=== PATIENT | male | born 1950 | race Caucasian/White ===

== ENCOUNTER 2016-11-14 15:16 | Inpatient (IN) | payer MEDICARE, MEDICAID ==
[~2016-11-14] VITALS: Ht 177.8 cm; Wt 80.3 kg
[~2016-11-14 15:16] MED LIST: AMLO2.5T PO; FLUO-191 PO; LEVE500T53 PO; MV-M1TAB2 PO; OMEP20 PO; QUET300XR PO; [UNRECOGNIZED DRUG - REMARK]
[2016-11-14 16:35] LABS: BASOPHILS # (AUTO) 0.02 K/uL (0.00-0.20); BASOPHILS % (AUTO) 0.2 % (0.0-2.0); EOSINOPHILS # (AUTO) 0.02 K/uL (0.00-0.70); EOSINOPHILS % (AUTO) 0.33 % (1.0-6.0); HEMATOCRIT 38.4 % (41-53); HEMOGLOBIN 12.9 g/dL (13.5-17.5); LYMPHOCYTES % (AUTO) 28.7 % (22.0-44.0); MEAN CORPUSCULAR HGB CONC 33.5 G/dL (31.0-37.0); MEAN CORPUSCULAR VOLUME 87 fL (80-100); MONOCYTES # (AUTO) 0.4 K/uL (0.1-1.0); MONOCYTES % (AUTO) 6.1 % (2.0-9.0); NEUTROPHILS # (AUTO) 4.5 K/uL (1.8-7.7); NEUTROPHILS % (AUTO) 64.6 % (40.0-70.0); PLATELET COUNT (AUTO) 174 K/uL (150-450); RED BLOOD CELL COUNT(AUTO) 4.43 MIL/uL (4.50-5.90); RED CELL DISTRIBUTION WIDTH 14.1 % (11.5-14.5); WHITE BLOOD COUNT (AUTO) 6.9 K/uL (4.5-11.0)
[2016-11-14 16:36] LABS: ANION GAP 14 mmol/L (8-16); CALCIUM, TOTAL 8.5 mg/dL (8.8-10.5); CARBON DIOXIDE 24 mmol/L (22-29); CHLORIDE 103 mmol/L (98-107); CREATININE 0.97 mg/dL (0.60-1.30); GLOMERULAR FILTR. RATE CALC > 60 mL/min (>60); POTASSIUM 3.6 mmol/L (3.5-5.1); SODIUM SERUM 141 mmol/L (136-145); UREA NITROGEN, BLOOD 13 mg/dL (7-18)
[2016-11-14 16:42] LABS: ALANINE AMINOTRANSFERASE 26 U/L (12-78); ALBUMIN 3.6 g/dL (3.4-5.0); ASPARTATE AMINOTRANSFERASE 23 U/L (15-37); BILIRUBIN,TOTAL 0.2 mg/dL (0.1-1.0); TOTAL PROTEIN, SERUM 7.2 g/dL (6.4-8.2)
[2016-11-14] MEDS ORDERED: SODIUM CHLORIDE 0.9% 1,000 ML IV ONE (17:15)
[2016-11-14] MEDS ORDERED: HALOPERIDOL 5 MG TABLET PO PRN (17:15)
[2016-11-14] MEDS ORDERED: HALOPERIDOL LACTATE 5 MG/ML VIAL IM ONE (18:45)
[2016-11-14] MEDS ORDERED: LORazepam 2 MG/ML VIAL IM ONE (18:45)
[2016-11-14] MEDS: ZOLPIDEM TARTRATE 10 MG TABLET PO PRN (23:49)
[2016-11-15] MEDS ORDERED: IBUPROFEN 600 MG TABLET PO PRN (10:00)
[2016-11-15] MEDS ORDERED: ACETAMINOPHEN 325 MG TABLET PO PRN (10:00)
[2016-11-15] MEDS ORDERED: PETROLATUM,WHITE 71 GM JELLY TP PRN (10:00)
[2016-11-15] MEDS ORDERED: BENZOCAINE/MENTHOL LOZENGE MM PRN (10:00)
[2016-11-15] MEDS ORDERED: ALBUTEROL SULFATE HFA 90 MCG/PUFF 8 GM INHALER IH PRN (10:00)
[2016-11-15] MEDS ORDERED: LOPERAMIDE HCL 2 MG CAPSULE PO PRN (10:00)
[2016-11-15] MEDS ORDERED: MAG HYDROX/AL HYDROX/SIMETH ES 30 ML SUSPENSION UDCUP PO PRN (10:00)
[2016-11-15] MEDS ORDERED: CloNIDine HCL 0.1 MG TABLET PO PRN (10:00)
[2016-11-15] MEDS ORDERED: ONDANSETRON HCL 4 MG TABLET PO PRN (10:00)
[2016-11-15] MEDS ORDERED: BACITRACIN 28.4 GM OINTMENT TP PRN (10:00)
[2016-11-15] MEDS ORDERED: MAGNESIUM HYDROXIDE SUSPENSION 30 ML UDCUP PO PRN (10:00)
[2016-11-15] MEDS: LORazepam 2 MG TABLET PO PRN (10:55)
[2016-11-15 16:16] VITALS: BP 137/84
[2016-11-15] MEDS: LevETIRAcetam 500 MG TABLET PO SCH (16:46)
[2016-11-16 06:19] VITALS: BP 135/80
[2016-11-16 08:24] VITALS: BP 115/70
[2016-11-16] MEDS: LevETIRAcetam 500 MG TABLET PO SCH ×2 (09:25→17:11)
[2016-11-16] MEDS: OMEPRAZOLE 20 MG CAPSULE PO SCH (09:25)
[2016-11-16] MEDS: AmLODIPine BESYLATE 2.5 MG TABLET PO SCH (09:26)
[2016-11-16] MEDS: DOCUSATE SODIUM 100 MG CAPSULE PO SCH (09:26)
[2016-11-16] MEDS: NICOTINE 21 MG/24 HOUR PATCH TD SCH (09:26)
[2016-11-16 16:00] VITALS: BP 112/74
[2016-11-16] MEDS: LORazepam 2 MG TABLET PO PRN (17:11)
[2016-11-17 07:24] VITALS: BP 112/67
[2016-11-17 08:11] VITALS: BP 116/79
[2016-11-17] MEDS: LevETIRAcetam 500 MG TABLET PO SCH ×2 (09:50→16:59)
[2016-11-17] MEDS: NICOTINE 21 MG/24 HOUR PATCH TD SCH (09:50)
[2016-11-17] MEDS: DOCUSATE SODIUM 100 MG CAPSULE PO SCH (09:50)
[2016-11-17] MEDS: AmLODIPine BESYLATE 2.5 MG TABLET PO SCH (09:50)
[2016-11-17] MEDS: OMEPRAZOLE 20 MG CAPSULE PO SCH (09:50)
[2016-11-17] MEDS: LORazepam 2 MG TABLET PO PRN (09:51)
[2016-11-17 16:00] VITALS: BP 112/69
[2016-11-17] MEDS: QUEtiapine FUMARATE 300 MG ER TABLET PO SCH (20:40)
[2016-11-17] MEDS: ZOLPIDEM TARTRATE 10 MG TABLET PO PRN (22:16)
[2016-11-18 07:01] VITALS: BP 109/61
[2016-11-18 08:11] VITALS: BP 109/63
[2016-11-18] MEDS: OMEPRAZOLE 20 MG CAPSULE PO SCH (09:55)
[2016-11-18] MEDS: DOCUSATE SODIUM 100 MG CAPSULE PO SCH (09:55)
[2016-11-18] MEDS: LevETIRAcetam 500 MG TABLET PO SCH ×2 (09:55→17:07)
[2016-11-18] MEDS: FLUoxetine HCL 20 MG CAPSULE PO SCH (09:55)
[2016-11-18] MEDS: NICOTINE 21 MG/24 HOUR PATCH TD SCH (09:55)
[2016-11-18] MEDS: AmLODIPine BESYLATE 2.5 MG TABLET PO SCH (09:55)
[2016-11-18 16:16] VITALS: BP 120/62
[2016-11-18] MEDS: QUEtiapine FUMARATE 300 MG ER TABLET PO SCH (20:38)
[2016-11-19 07:09] VITALS: BP 123/74
[2016-11-19 08:09] VITALS: BP 102/64
[2016-11-19] MEDS: OMEPRAZOLE 20 MG CAPSULE PO SCH (08:35)
[2016-11-19] MEDS: LevETIRAcetam 500 MG TABLET PO SCH ×2 (08:35→16:58)
[2016-11-19] MEDS: FLUoxetine HCL 20 MG CAPSULE PO SCH (08:36)
[2016-11-19] MEDS: DOCUSATE SODIUM 100 MG CAPSULE PO SCH (08:36)
[2016-11-19] MEDS: NICOTINE 21 MG/24 HOUR PATCH TD SCH (08:36)
[2016-11-19] MEDS: AmLODIPine BESYLATE 2.5 MG TABLET PO SCH (08:37)
[2016-11-19 16:06] VITALS: BP 110/66
[2016-11-19] MEDS: QUEtiapine FUMARATE 300 MG ER TABLET PO SCH (20:33)
[2016-11-20 07:17] VITALS: BP 112/65
[2016-11-20 08:11] VITALS: BP 109/56
[2016-11-20] MEDS: NICOTINE 21 MG/24 HOUR PATCH TD SCH (09:00)
[2016-11-20] MEDS: FLUoxetine HCL 20 MG CAPSULE PO SCH (09:11)
[2016-11-20] MEDS: OMEPRAZOLE 20 MG CAPSULE PO SCH (09:11)
[2016-11-20] MEDS: DOCUSATE SODIUM 100 MG CAPSULE PO SCH (09:11)
[2016-11-20] MEDS: LevETIRAcetam 500 MG TABLET PO SCH ×2 (09:11→17:07)
[2016-11-20] MEDS: AmLODIPine BESYLATE 2.5 MG TABLET PO SCH (09:12)
[2016-11-20 16:00] VITALS: BP 110/67
[2016-11-20] MEDS: QUEtiapine FUMARATE 300 MG ER TABLET PO SCH (20:28)
[2016-11-21 06:49] VITALS: BP 103/60
[2016-11-21 08:37] VITALS: BP 109/66
[2016-11-21] MEDS: OMEPRAZOLE 20 MG CAPSULE PO SCH (08:59)
[2016-11-21] MEDS: FLUoxetine HCL 20 MG CAPSULE PO SCH (08:59)
[2016-11-21] MEDS: NICOTINE 21 MG/24 HOUR PATCH TD SCH (08:59)
[2016-11-21] MEDS: AmLODIPine BESYLATE 2.5 MG TABLET PO SCH (08:59)
[2016-11-21] MEDS: DOCUSATE SODIUM 100 MG CAPSULE PO SCH (08:59)
[2016-11-21] MEDS: LevETIRAcetam 500 MG TABLET PO SCH ×2 (08:59→17:41)
[2016-11-21 16:00] VITALS: BP 108/69
[2016-11-21] MEDS: QUEtiapine FUMARATE 300 MG ER TABLET PO SCH (21:09)
[2016-11-22 06:47] VITALS: BP 113/72
[2016-11-22 08:11] VITALS: BP 100/63
[2016-11-22] MEDS: AmLODIPine BESYLATE 2.5 MG TABLET PO SCH (09:00)
[2016-11-22] MEDS: DOCUSATE SODIUM 100 MG CAPSULE PO SCH (09:45)
[2016-11-22] MEDS: OMEPRAZOLE 20 MG CAPSULE PO SCH (09:45)
[2016-11-22] MEDS: FLUoxetine HCL 20 MG CAPSULE PO SCH (09:45)
[2016-11-22] MEDS: LevETIRAcetam 500 MG TABLET PO SCH ×2 (09:46→17:05)
[2016-11-22] MEDS: NICOTINE 21 MG/24 HOUR PATCH TD SCH (09:46)
[2016-11-22 16:11] VITALS: BP 113/71
[2016-11-22] MEDS: QUEtiapine FUMARATE 300 MG ER TABLET PO SCH (20:33)
[2016-11-23 06:41] VITALS: BP 105/60
[2016-11-23 08:11] VITALS: BP 104/54
[2016-11-23] MEDS: AmLODIPine BESYLATE 2.5 MG TABLET PO SCH (09:00)
[2016-11-23] MEDS: FLUoxetine HCL 20 MG CAPSULE PO SCH (09:23)
[2016-11-23] MEDS: OMEPRAZOLE 20 MG CAPSULE PO SCH (09:23)
[2016-11-23] MEDS: LevETIRAcetam 500 MG TABLET PO SCH ×2 (09:23→17:07)
[2016-11-23] MEDS: DOCUSATE SODIUM 100 MG CAPSULE PO SCH (09:23)
[2016-11-23] MEDS: NICOTINE 21 MG/24 HOUR PATCH TD SCH (09:24)
[2016-11-23 16:00] VITALS: BP 118/67
[2016-11-23] MEDS: QUEtiapine FUMARATE 300 MG ER TABLET PO SCH (20:33)
[2016-11-24] MEDS: ZOLPIDEM TARTRATE 10 MG TABLET PO PRN (00:57)
[2016-11-24 01:10] VITALS: BP 103/61
[2016-11-24 08:11] VITALS: BP 118/68
[2016-11-24] MEDS: LevETIRAcetam 500 MG TABLET PO SCH ×2 (09:41→16:50)
[2016-11-24] MEDS: OMEPRAZOLE 20 MG CAPSULE PO SCH (09:41)
[2016-11-24] MEDS: AmLODIPine BESYLATE 2.5 MG TABLET PO SCH (09:41)
[2016-11-24] MEDS: FLUoxetine HCL 20 MG CAPSULE PO SCH (09:42)
[2016-11-24] MEDS: DOCUSATE SODIUM 100 MG CAPSULE PO SCH (09:42)
[2016-11-24] MEDS: NICOTINE 21 MG/24 HOUR PATCH TD SCH (09:42)
[2016-11-24 16:00] VITALS: BP 116/67
[2016-11-24] MEDS: QUEtiapine FUMARATE 300 MG ER TABLET PO SCH (20:21)
[2016-11-25 06:30] VITALS: BP 108/63
[2016-11-25 08:36] VITALS: BP 105/69
[2016-11-25] MEDS: AmLODIPine BESYLATE 2.5 MG TABLET PO SCH (09:30)
[2016-11-25] MEDS: LevETIRAcetam 500 MG TABLET PO SCH ×2 (09:30→17:02)
[2016-11-25] MEDS: OMEPRAZOLE 20 MG CAPSULE PO SCH (09:30)
[2016-11-25] MEDS: DOCUSATE SODIUM 100 MG CAPSULE PO SCH (09:30)
[2016-11-25] MEDS: FLUoxetine HCL 20 MG CAPSULE PO SCH (09:30)
[2016-11-25] MEDS: NICOTINE 21 MG/24 HOUR PATCH TD SCH (10:53)
[2016-11-25 16:00] VITALS: BP 118/71
[2016-11-25] MEDS: QUEtiapine FUMARATE 300 MG ER TABLET PO SCH (20:47)
[2016-11-26 05:58] VITALS: BP 101/64
[2016-11-26 08:45] VITALS: BP 104/65
[2016-11-26] MEDS: LevETIRAcetam 500 MG TABLET PO SCH (09:11)
[2016-11-26] MEDS: OMEPRAZOLE 20 MG CAPSULE PO SCH (09:12)
[2016-11-26] MEDS: FLUoxetine HCL 20 MG CAPSULE PO SCH (09:12)
[2016-11-26] MEDS: DOCUSATE SODIUM 100 MG CAPSULE PO SCH (09:12)
[2016-11-26] MEDS: AmLODIPine BESYLATE 2.5 MG TABLET PO SCH (09:12)
[2016-11-26] MEDS: NICOTINE 21 MG/24 HOUR PATCH TD SCH (09:13)
[2016-11-26] MEDS ORDERED: DOCU-174 PO (10:26)
== END 2016-11-26 14:35 | disposition home or self-care (01) | DRG 750 ==
LOC: EMS 15:18 → AHU 20:49 → B3A 11-15 15:57 → B2S 11-25 21:30
PROVIDERS: ADMIT Psychiatry & Neurology Psychiatry; ATTEND Psychiatry & Neurology Psychiatry
DX: F25.9 Schizoaffective disorder, unspecified (principal); J44.9 Chronic obstructive pulmonary disease, unspecified; R45.851 Suicidal ideations; G40.909 Epilepsy, unspecified, not intractable, without status epilepticus; I10 Essential (primary) hypertension; F32.9 Major depressive disorder, single episode, unspecified; K21.9 Gastro-esophageal reflux disease without esophagitis; E78.5 Hyperlipidemia, unspecified; M19.90 Unspecified osteoarthritis, unspecified site; G47.00 Insomnia, unspecified; B18.2 Chronic viral hepatitis C; K59.00 Constipation, unspecified; F10.129 Alcohol abuse with intoxication, unspecified; F17.210 Nicotine dependence, cigarettes, uncomplicated; Z71.41 Alcohol abuse counseling and surveillance of alcoholic; Z88.5 Allergy status to narcotic agent; Z79.899 Other long term (current) drug therapy; Z98.890 Other specified postprocedural states; Z59.0 Homelessness; Z71.6 Tobacco abuse counseling; Z91.14 Patient's other noncompliance with medication regimen; Y90.7 Blood alcohol level of 200-239 mg/100 ml
CPT/HCPCS: 87081; 93005; 96372; 99285; 99406; A0429; G0480; J1630; J2060; J7030

== ENCOUNTER 2016-11-29 20:00 | Inpatient (IN) | payer MEDICARE, MEDICAID ==
[~2016-11-29] VITALS: Ht 177.8 cm; Wt 78.7 kg
[~2016-11-29 20:00] MED LIST changes: +DOCU-174 PO; -MV-M1TAB2 PO; -[UNRECOGNIZED DRUG - REMARK]
[2016-11-29 20:37] LABS: LYMPHOCYTES # (AUTO) 3.7 K/uL (1.0-4.8)
[2016-11-29 20:41] LABS: BASOPHILS % (AUTO) 0.6 % (0.0-2.0); EOSINOPHILS % (AUTO) 0.5 % (1.0-6.0); HEMATOCRIT 43.8 % (41-53); HEMOGLOBIN 14.1 g/dL (13.5-17.5); LYMPHOCYTES % (AUTO) 36.3 % (22.0-44.0); MEAN CORPUSCULAR HEMOGLOBIN 28.1 pg (26.0-34.0); MEAN CORPUSCULAR HGB CONC 32.3 G/dL (31.0-37.0); MEAN CORPUSCULAR VOLUME 87 fL (80-100); MONOCYTES # (AUTO) 0.8 K/uL (0.1-1.0); MONOCYTES % (AUTO) 7.7 % (2.0-9.0); NEUTROPHILS # (AUTO) 5.6 K/uL (1.8-7.7); NEUTROPHILS % (AUTO) 54.9 % (40.0-70.0); RED BLOOD CELL COUNT(AUTO) 5.03 MIL/uL (4.50-5.90); RED CELL DISTRIBUTION WIDTH 13.6 % (11.5-14.5); WHITE BLOOD COUNT (AUTO) 10.2 K/uL (4.5-11.0)
[2016-11-29 20:53] LABS: CALCIUM, TOTAL 9.7 mg/dL (8.8-10.5); CREATININE 1.38 mg/dL (0.60-1.30); POTASSIUM 4.3 mmol/L (3.5-5.1)
[2016-11-29 20:58] LABS: ALBUMIN 4.4 g/dL (3.4-5.0); BILIRUBIN,TOTAL 0.7 mg/dL (0.1-1.0); TOTAL PROTEIN, SERUM 8.7 g/dL (6.4-8.2)
[2016-11-29 21:39] LABS: PLATELET COUNT (AUTO) 179 K/uL (150-450)
[2016-11-30 00:19] VITALS: BP 107/63
[2016-11-30] MEDS: ZOLPIDEM TARTRATE 10 MG TABLET PO PRN (00:32)
[2016-11-30] MEDS ORDERED: PNEUMOCOCCAL VACCINE POLYVALENT 0.5 ML VIAL [PPSV23] IM ONE (01:00)
[2016-11-30 08:08] VITALS: BP 100/52
[2016-11-30] MEDS ORDERED: CloNIDine HCL 0.1 MG TABLET PO PRN (08:15)
[2016-11-30] MEDS ORDERED: ONDANSETRON HCL 4 MG TABLET PO PRN (08:15)
[2016-11-30] MEDS ORDERED: LOPERAMIDE HCL 2 MG CAPSULE PO PRN (08:15)
[2016-11-30] MEDS ORDERED: MAG HYDROX/AL HYDROX/SIMETH ES 30 ML SUSPENSION UDCUP PO PRN (08:15)
[2016-11-30] MEDS ORDERED: BACITRACIN 28.4 GM OINTMENT TP PRN (08:15)
[2016-11-30] MEDS ORDERED: ALBUTEROL SULFATE HFA 90 MCG/PUFF 8 GM INHALER IH PRN (08:15)
[2016-11-30] MEDS ORDERED: MAGNESIUM HYDROXIDE SUSPENSION 30 ML UDCUP PO PRN (08:15)
[2016-11-30] MEDS ORDERED: BENZOCAINE/MENTHOL LOZENGE MM PRN (08:15)
[2016-11-30] MEDS ORDERED: PETROLATUM,WHITE 71 GM JELLY TP PRN (08:15)
[2016-11-30] MEDS ORDERED: ACETAMINOPHEN 325 MG TABLET PO PRN (08:15)
[2016-11-30] MEDS: DOCUSATE SODIUM 100 MG CAPSULE PO SCH (08:49)
[2016-11-30] MEDS: OMEPRAZOLE 20 MG CAPSULE PO SCH (08:49)
[2016-11-30] MEDS: LevETIRAcetam 500 MG TABLET PO SCH ×2 (08:49→16:44)
[2016-11-30] MEDS: NICOTINE 21 MG/24 HOUR PATCH TD SCH (08:49)
[2016-11-30] MEDS: QUEtiapine FUMARATE 300 MG ER TABLET PO SCH (09:33)
[2016-11-30] MEDS: FLUoxetine HCL 20 MG CAPSULE PO SCH (09:33)
[2016-11-30] MEDS ORDERED: AmLODIPine BESYLATE 2.5 MG TABLET PO SCH (12:00)
[2016-11-30 14:15] VITALS: BP 97/59
[2016-11-30 16:31] VITALS: BP 123/77
[2016-12-01 06:25] VITALS: BP 134/75
[2016-12-01 08:00] VITALS: BP 98/98
[2016-12-01] MEDS: NICOTINE 21 MG/24 HOUR PATCH TD SCH (08:25)
[2016-12-01] MEDS: FLUoxetine HCL 20 MG CAPSULE PO SCH (08:27)
[2016-12-01] MEDS: QUEtiapine FUMARATE 300 MG ER TABLET PO SCH (08:27)
[2016-12-01] MEDS: DOCUSATE SODIUM 100 MG CAPSULE PO SCH (08:28)
[2016-12-01] MEDS: OMEPRAZOLE 20 MG CAPSULE PO SCH (08:28)
[2016-12-01] MEDS: LevETIRAcetam 500 MG TABLET PO SCH ×3 (08:28→18:13)
[2016-12-01 08:30] VITALS: BP 96/41
[2016-12-01 08:40] VITALS: BP 96/44
[2016-12-01 09:00] VITALS: BP 90/66
[2016-12-01 16:08] VITALS: BP 106/64
[2016-12-01] MEDS: LORazepam 2 MG TABLET PO PRN (19:11)
[2016-12-01] MEDS: ZOLPIDEM TARTRATE 10 MG TABLET PO PRN (22:19)
[2016-12-02 00:20] VITALS: BP 125/78
[2016-12-02] MEDS: LORazepam 2 MG TABLET PO PRN (00:21)
[2016-12-02] MEDS: HALOPERIDOL 5 MG TABLET PO PRN (02:17)
[2016-12-02 08:32] LABS: ALANINE AMINOTRANSFERASE 28 U/L (12-78); ALBUMIN 3.6 g/dL (3.4-5.0); ANION GAP 11 mmol/L (8-16); ASPARTATE AMINOTRANSFERASE 16 U/L (15-37); BILIRUBIN,TOTAL 0.5 mg/dL (0.1-1.0); CALCIUM, TOTAL 8.7 mg/dL (8.8-10.5); CARBON DIOXIDE 27 mmol/L (22-29); CHLORIDE 102 mmol/L (98-107); CREATININE 0.87 mg/dL (0.60-1.30); GLOMERULAR FILTR. RATE CALC > 60 mL/min (>60); POTASSIUM 4.1 mmol/L (3.5-5.1); SODIUM SERUM 140 mmol/L (136-145); TOTAL PROTEIN, SERUM 7.4 g/dL (6.4-8.2); UREA NITROGEN, BLOOD 18 mg/dL (7-18)
[2016-12-02 08:43] VITALS: BP 100/57
[2016-12-02] MEDS: FLUoxetine HCL 20 MG CAPSULE PO SCH (09:10)
[2016-12-02] MEDS: LevETIRAcetam 500 MG TABLET PO SCH ×2 (09:10→16:48)
[2016-12-02] MEDS: DOCUSATE SODIUM 100 MG CAPSULE PO SCH (09:10)
[2016-12-02] MEDS: NICOTINE 21 MG/24 HOUR PATCH TD SCH (09:10)
[2016-12-02] MEDS: QUEtiapine FUMARATE 300 MG ER TABLET PO SCH (09:10)
[2016-12-02] MEDS: OMEPRAZOLE 20 MG CAPSULE PO SCH (09:10)
[2016-12-02] MEDS ORDERED: LACTULOSE 20 GM/30 ML SOLUTION UDCUP PO SCH (11:00)
[2016-12-02 11:15] VITALS: BP 112/66
[2016-12-02] MEDS: LACTULOSE 20 GM/30 ML SOLUTION UDCUP PO SCH ×2 (11:25→16:48)
[2016-12-02 16:07] VITALS: BP 116/73
[2016-12-02] MEDS: ZOLPIDEM TARTRATE 10 MG TABLET PO PRN (21:13)
[2016-12-03 03:46] VITALS: BP 127/67
[2016-12-03] MEDS: HALOPERIDOL 5 MG TABLET PO PRN (03:54)
[2016-12-03] MEDS: LACTULOSE 20 GM/30 ML SOLUTION UDCUP PO SCH ×3 (08:21→17:09)
[2016-12-03] MEDS: DOCUSATE SODIUM 100 MG CAPSULE PO SCH (08:50)
[2016-12-03] MEDS: NICOTINE 21 MG/24 HOUR PATCH TD SCH (08:50)
[2016-12-03] MEDS: LevETIRAcetam 500 MG TABLET PO SCH ×2 (08:50→17:08)
[2016-12-03] MEDS: FLUoxetine HCL 20 MG CAPSULE PO SCH (08:50)
[2016-12-03] MEDS: QUEtiapine FUMARATE 300 MG ER TABLET PO SCH (08:50)
[2016-12-03] MEDS: OMEPRAZOLE 20 MG CAPSULE PO SCH (08:50)
[2016-12-03 09:55] VITALS: BP 121/77
[2016-12-03 16:16] VITALS: BP 103/70
[2016-12-03] MEDS: LORazepam 2 MG TABLET PO PRN (17:08)
[2016-12-03] MEDS: ZOLPIDEM TARTRATE 10 MG TABLET PO PRN (20:42)
[2016-12-04] MEDS: LORazepam 2 MG TABLET PO PRN ×2 (01:54→17:28)
[2016-12-04 07:08] VITALS: BP 119/72
[2016-12-04 08:42] VITALS: BP 124/74
[2016-12-04] MEDS: QUEtiapine FUMARATE 300 MG ER TABLET PO SCH (10:13)
[2016-12-04] MEDS: OMEPRAZOLE 20 MG CAPSULE PO SCH (10:13)
[2016-12-04] MEDS: LACTULOSE 20 GM/30 ML SOLUTION UDCUP PO SCH ×3 (10:13→17:28)
[2016-12-04] MEDS: NICOTINE 21 MG/24 HOUR PATCH TD SCH (10:13)
[2016-12-04] MEDS: CHOLECALCIFEROL (VIT D3) 1,000 UNITS TABLET PO SCH (10:13)
[2016-12-04] MEDS: DOCUSATE SODIUM 100 MG CAPSULE PO SCH (10:14)
[2016-12-04] MEDS: LevETIRAcetam 500 MG TABLET PO SCH ×2 (10:14→17:28)
[2016-12-04] MEDS: FLUoxetine HCL 20 MG CAPSULE PO SCH (10:21)
[2016-12-04 16:11] VITALS: BP 100/64
[2016-12-04] MEDS: ZOLPIDEM TARTRATE 10 MG TABLET PO PRN (20:41)
[2016-12-05] MEDS: LACTULOSE 20 GM/30 ML SOLUTION UDCUP PO SCH ×3 (00:21→16:23)
[2016-12-05 06:54] VITALS: BP 128/89
[2016-12-05] MEDS: NICOTINE 21 MG/24 HOUR PATCH TD SCH (08:46)
[2016-12-05] MEDS: DOCUSATE SODIUM 100 MG CAPSULE PO SCH (08:46)
[2016-12-05] MEDS: CHOLECALCIFEROL (VIT D3) 1,000 UNITS TABLET PO SCH (08:47)
[2016-12-05] MEDS: OMEPRAZOLE 20 MG CAPSULE PO SCH (08:47)
[2016-12-05] MEDS: LevETIRAcetam 500 MG TABLET PO SCH ×2 (08:47→16:23)
[2016-12-05] MEDS: QUEtiapine FUMARATE 300 MG ER TABLET PO SCH (08:47)
[2016-12-05] MEDS: FLUoxetine HCL 20 MG CAPSULE PO SCH (08:49)
[2016-12-05 09:16] VITALS: BP 122/84
[2016-12-05] MEDS: IBUPROFEN 600 MG TABLET PO PRN (10:30)
[2016-12-05 10:36] VITALS: BP 103/73
[2016-12-05 16:13] VITALS: BP 128/78
[2016-12-06] MEDS: LACTULOSE 20 GM/30 ML SOLUTION UDCUP PO SCH ×4 (00:24→23:57)
[2016-12-06 05:14] VITALS: BP 104/66
[2016-12-06] MEDS: QUEtiapine FUMARATE 300 MG ER TABLET PO SCH (08:13)
[2016-12-06] MEDS: CHOLECALCIFEROL (VIT D3) 1,000 UNITS TABLET PO SCH (08:13)
[2016-12-06] MEDS: OMEPRAZOLE 20 MG CAPSULE PO SCH (08:13)
[2016-12-06] MEDS: NICOTINE 21 MG/24 HOUR PATCH TD SCH (08:13)
[2016-12-06] MEDS: DOCUSATE SODIUM 100 MG CAPSULE PO SCH (08:13)
[2016-12-06] MEDS: LevETIRAcetam 500 MG TABLET PO SCH ×2 (08:18→16:20)
[2016-12-06] MEDS: FLUoxetine HCL 20 MG CAPSULE PO SCH (08:18)
[2016-12-06 08:56] VITALS: BP 103/61
[2016-12-06 16:15] VITALS: BP 96/56
[2016-12-07 00:46] VITALS: BP 102/62
[2016-12-07 08:19] VITALS: BP 106/61
[2016-12-07] MEDS: NICOTINE 21 MG/24 HOUR PATCH TD SCH (09:57)
[2016-12-07] MEDS: DOCUSATE SODIUM 100 MG CAPSULE PO SCH (09:57)
[2016-12-07] MEDS: QUEtiapine FUMARATE 300 MG ER TABLET PO SCH (09:57)
[2016-12-07] MEDS: OMEPRAZOLE 20 MG CAPSULE PO SCH (09:58)
[2016-12-07] MEDS: CHOLECALCIFEROL (VIT D3) 1,000 UNITS TABLET PO SCH (09:58)
[2016-12-07] MEDS: LevETIRAcetam 500 MG TABLET PO SCH ×2 (10:02→16:27)
[2016-12-07] MEDS: FLUoxetine HCL 20 MG CAPSULE PO SCH (10:02)
[2016-12-07] MEDS: LACTULOSE 20 GM/30 ML SOLUTION UDCUP PO SCH ×2 (10:08→16:27)
[2016-12-07 16:09] VITALS: BP 106/57
[2016-12-08 06:44] VITALS: BP 104/64
[2016-12-08 08:31] LABS: EOSINOPHILS % (AUTO) 1.2 % (1.0-6.0); HEMATOCRIT 38.9 % (41-53); HEMOGLOBIN 12.8 g/dL (13.5-17.5); LYMPHOCYTES # (AUTO) 2.4 K/uL (1.0-4.8); LYMPHOCYTES % (AUTO) 30.3 % (22.0-44.0); MEAN CORPUSCULAR HEMOGLOBIN 28.6 pg (26.0-34.0); MEAN CORPUSCULAR HGB CONC 32.9 G/dL (31.0-37.0); MEAN CORPUSCULAR VOLUME 87 fL (80-100); MONOCYTES # (AUTO) 0.8 K/uL (0.1-1.0); MONOCYTES % (AUTO) 10.1 % (2.0-9.0); NEUTROPHILS # (AUTO) 4.6 K/uL (1.8-7.7); NEUTROPHILS % (AUTO) 58.4 % (40.0-70.0); PLATELET COUNT (AUTO) 180 K/uL (150-450); RED BLOOD CELL COUNT(AUTO) 4.49 MIL/uL (4.50-5.90); RED CELL DISTRIBUTION WIDTH 13.6 % (11.5-14.5); WHITE BLOOD COUNT (AUTO) 7.9 K/uL (4.5-11.0)
[2016-12-08 08:50] LABS: ALANINE AMINOTRANSFERASE 29 U/L (12-78); ALBUMIN 3.3 g/dL (3.4-5.0); ANION GAP 9 mmol/L (8-16); ASPARTATE AMINOTRANSFERASE 17 U/L (15-37); BILIRUBIN,TOTAL 0.4 mg/dL (0.1-1.0); CALCIUM, TOTAL 8.1 mg/dL (8.8-10.5); CARBON DIOXIDE 28 mmol/L (22-29); CHLORIDE 101 mmol/L (98-107); GLOMERULAR FILTR. RATE CALC > 60 mL/min (>60); POTASSIUM 3.8 mmol/L (3.5-5.1); SODIUM SERUM 138 mmol/L (136-145); TOTAL PROTEIN, SERUM 7.2 g/dL (6.4-8.2); UREA NITROGEN, BLOOD 14 mg/dL (7-18)
[2016-12-08 09:09] VITALS: BP 100/60
[2016-12-08] MEDS: CHOLECALCIFEROL (VIT D3) 1,000 UNITS TABLET PO SCH (09:44)
[2016-12-08] MEDS: OMEPRAZOLE 20 MG CAPSULE PO SCH (09:44)
[2016-12-08] MEDS: LevETIRAcetam 500 MG TABLET PO SCH ×2 (09:45→16:45)
[2016-12-08] MEDS: DOCUSATE SODIUM 100 MG CAPSULE PO SCH (09:45)
[2016-12-08] MEDS: QUEtiapine FUMARATE 300 MG ER TABLET PO SCH (09:45)
[2016-12-08] MEDS: NICOTINE 21 MG/24 HOUR PATCH TD SCH (09:45)
[2016-12-08] MEDS: FLUoxetine HCL 20 MG CAPSULE PO SCH (09:47)
[2016-12-08] MEDS: IBUPROFEN 600 MG TABLET PO PRN ×2 (10:42→18:04)
[2016-12-08 16:10] VITALS: BP 105/64
[2016-12-09 00:31] VITALS: BP 110/62
[2016-12-09 08:38] VITALS: BP 104/60
[2016-12-09] MEDS: DOCUSATE SODIUM 100 MG CAPSULE PO SCH (08:54)
[2016-12-09] MEDS: QUEtiapine FUMARATE 300 MG ER TABLET PO SCH (08:54)
[2016-12-09] MEDS: NICOTINE 21 MG/24 HOUR PATCH TD SCH (08:54)
[2016-12-09] MEDS: OMEPRAZOLE 20 MG CAPSULE PO SCH (08:55)
[2016-12-09] MEDS: FLUoxetine HCL 20 MG CAPSULE PO SCH (08:55)
[2016-12-09] MEDS: LevETIRAcetam 500 MG TABLET PO SCH ×2 (08:55→16:34)
[2016-12-09] MEDS: CHOLECALCIFEROL (VIT D3) 1,000 UNITS TABLET PO SCH (08:55)
[2016-12-09 16:06] VITALS: BP 126/94
[2016-12-10 07:23] VITALS: BP 120/90
[2016-12-10 08:15] VITALS: BP 128/74
[2016-12-10] MEDS: CHOLECALCIFEROL (VIT D3) 1,000 UNITS TABLET PO SCH (08:52)
[2016-12-10] MEDS: QUEtiapine FUMARATE 300 MG ER TABLET PO SCH (08:52)
[2016-12-10] MEDS: LevETIRAcetam 500 MG TABLET PO SCH ×2 (08:52→16:10)
[2016-12-10] MEDS: OMEPRAZOLE 20 MG CAPSULE PO SCH (08:52)
[2016-12-10] MEDS: DOCUSATE SODIUM 100 MG CAPSULE PO SCH (08:52)
[2016-12-10] MEDS: FLUoxetine HCL 20 MG CAPSULE PO SCH (08:52)
[2016-12-10] MEDS: NICOTINE 21 MG/24 HOUR PATCH TD SCH (08:52)
[2016-12-10 16:08] VITALS: BP 111/68
[2016-12-10] MEDS: IBUPROFEN 600 MG TABLET PO PRN (16:10)
[2016-12-10] MEDS: LACTULOSE 20 GM/30 ML SOLUTION UDCUP PO SCH (20:59)
[2016-12-11] MEDS: LACTULOSE 20 GM/30 ML SOLUTION UDCUP PO SCH ×3 (00:26→16:45)
[2016-12-11 01:10] VITALS: BP 135/69
[2016-12-11] MEDS: DOCUSATE SODIUM 100 MG CAPSULE PO SCH (08:58)
[2016-12-11] MEDS: CHOLECALCIFEROL (VIT D3) 1,000 UNITS TABLET PO SCH (08:58)
[2016-12-11] MEDS: FLUoxetine HCL 20 MG CAPSULE PO SCH (08:58)
[2016-12-11] MEDS: OMEPRAZOLE 20 MG CAPSULE PO SCH (09:02)
[2016-12-11] MEDS: QUEtiapine FUMARATE 300 MG ER TABLET PO SCH (09:02)
[2016-12-11] MEDS: NICOTINE 21 MG/24 HOUR PATCH TD SCH (09:03)
[2016-12-11] MEDS: LevETIRAcetam 500 MG TABLET PO SCH ×2 (10:23→17:07)
[2016-12-11 16:37] VITALS: BP 101/72
[2016-12-11] MEDS ORDERED: DiphenhydrAMINE HCL 50 MG/ML VIAL IM ONE (19:45)
[2016-12-12] MEDS: LORazepam 2 MG TABLET PO PRN (00:09)
[2016-12-12] MEDS: LACTULOSE 20 GM/30 ML SOLUTION UDCUP PO SCH ×3 (00:09→17:09)
[2016-12-12 00:15] VITALS: BP 123/56
[2016-12-12 08:00] VITALS: BP 123/73
[2016-12-12] MEDS: DOCUSATE SODIUM 100 MG CAPSULE PO SCH (09:07)
[2016-12-12] MEDS: CHOLECALCIFEROL (VIT D3) 1,000 UNITS TABLET PO SCH (09:07)
[2016-12-12] MEDS: NICOTINE 21 MG/24 HOUR PATCH TD SCH (09:07)
[2016-12-12] MEDS: FLUoxetine HCL 20 MG CAPSULE PO SCH (09:08)
[2016-12-12] MEDS: QUEtiapine FUMARATE 300 MG ER TABLET PO SCH (09:08)
[2016-12-12] MEDS: OMEPRAZOLE 20 MG CAPSULE PO SCH (09:08)
[2016-12-12] MEDS: LevETIRAcetam 500 MG TABLET PO SCH ×2 (09:51→17:09)
[2016-12-12 16:33] VITALS: BP 106/58
[2016-12-12] MEDS: IBUPROFEN 600 MG TABLET PO PRN (17:45)
[2016-12-13] MEDS: LACTULOSE 20 GM/30 ML SOLUTION UDCUP PO SCH ×3 (00:34→08:58)
[2016-12-13 04:58] VITALS: BP 101/73
[2016-12-13 08:47] VITALS: BP 93/50
[2016-12-13] MEDS: FLUoxetine HCL 20 MG CAPSULE PO SCH (08:58)
[2016-12-13] MEDS: CHOLECALCIFEROL (VIT D3) 1,000 UNITS TABLET PO SCH (08:58)
[2016-12-13] MEDS: LevETIRAcetam 500 MG TABLET PO SCH ×2 (08:58→17:16)
[2016-12-13] MEDS: QUEtiapine FUMARATE 300 MG ER TABLET PO SCH (08:58)
[2016-12-13] MEDS: DOCUSATE SODIUM 100 MG CAPSULE PO SCH (08:58)
[2016-12-13] MEDS: OMEPRAZOLE 20 MG CAPSULE PO SCH (08:58)
[2016-12-13] MEDS: NICOTINE 21 MG/24 HOUR PATCH TD SCH (08:59)
[2016-12-13 16:40] VITALS: BP 114/60
[2016-12-14 05:09] VITALS: BP 107/78
[2016-12-14] MEDS: DOCUSATE SODIUM 100 MG CAPSULE PO SCH (09:00)
[2016-12-14] MEDS: NICOTINE 21 MG/24 HOUR PATCH TD SCH (09:37)
[2016-12-14] MEDS: QUEtiapine FUMARATE 300 MG ER TABLET PO SCH (09:37)
[2016-12-14] MEDS: FLUoxetine HCL 20 MG CAPSULE PO SCH (09:37)
[2016-12-14] MEDS: OMEPRAZOLE 20 MG CAPSULE PO SCH (09:37)
[2016-12-14] MEDS: LevETIRAcetam 500 MG TABLET PO SCH ×2 (09:37→16:26)
[2016-12-14] MEDS: CHOLECALCIFEROL (VIT D3) 1,000 UNITS TABLET PO SCH (09:37)
[2016-12-14 09:59] VITALS: BP 105/79
[2016-12-14 16:09] VITALS: BP 106/60
[2016-12-15 02:42] VITALS: BP 119/64
[2016-12-15 08:57] VITALS: BP 104/61
[2016-12-15] MEDS: NICOTINE 21 MG/24 HOUR PATCH TD SCH (10:05)
[2016-12-15] MEDS: LevETIRAcetam 500 MG TABLET PO SCH ×2 (10:05→16:39)
[2016-12-15] MEDS: DOCUSATE SODIUM 100 MG CAPSULE PO SCH (10:06)
[2016-12-15] MEDS: QUEtiapine FUMARATE 300 MG ER TABLET PO SCH (10:06)
[2016-12-15] MEDS: OMEPRAZOLE 20 MG CAPSULE PO SCH (10:06)
[2016-12-15] MEDS: FLUoxetine HCL 20 MG CAPSULE PO SCH (10:06)
[2016-12-15] MEDS: CHOLECALCIFEROL (VIT D3) 1,000 UNITS TABLET PO SCH (10:06)
[2016-12-15 16:00] VITALS: BP 97/67
[2016-12-16 05:50] VITALS: BP 105/64
[2016-12-16 08:20] VITALS: BP 108/64
[2016-12-16] MEDS: FLUoxetine HCL 20 MG CAPSULE PO SCH (08:57)
[2016-12-16] MEDS: CHOLECALCIFEROL (VIT D3) 1,000 UNITS TABLET PO SCH (08:57)
[2016-12-16] MEDS: LevETIRAcetam 500 MG TABLET PO SCH (08:57)
[2016-12-16] MEDS: OMEPRAZOLE 20 MG CAPSULE PO SCH (08:57)
[2016-12-16] MEDS: NICOTINE 21 MG/24 HOUR PATCH TD SCH (08:57)
[2016-12-16] MEDS: DOCUSATE SODIUM 100 MG CAPSULE PO SCH (08:57)
[2016-12-16] MEDS: QUEtiapine FUMARATE 300 MG ER TABLET PO SCH (08:58)
[2016-12-16] MEDS ORDERED: VITAD1000 PO (13:13)
== END 2016-12-16 14:45 | disposition home or self-care (01) | DRG 750 ==
LOC: EMS 20:03 → B2S 20:30
PROVIDERS: ADMIT Psychiatry & Neurology Psychiatry; ATTEND Psychiatry & Neurology Psychiatry
PROC: 3E0234Z Introduction of Serum, Toxoid and Vaccine into Muscle, Percutaneous Approach (ICD-10-PCS; principal; 2016-11-30)
DX: F20.0 Paranoid schizophrenia (principal); N17.9 Acute kidney failure, unspecified; J44.9 Chronic obstructive pulmonary disease, unspecified; R45.851 Suicidal ideations; E58 Dietary calcium deficiency; E55.9 Vitamin D deficiency, unspecified; F25.9 Schizoaffective disorder, unspecified; G40.909 Epilepsy, unspecified, not intractable, without status epilepticus; K21.9 Gastro-esophageal reflux disease without esophagitis; B18.2 Chronic viral hepatitis C; M19.90 Unspecified osteoarthritis, unspecified site; K59.00 Constipation, unspecified; I10 Essential (primary) hypertension; G47.00 Insomnia, unspecified; F17.210 Nicotine dependence, cigarettes, uncomplicated; G89.29 Other chronic pain; F10.10 Alcohol abuse, uncomplicated; Z23 Encounter for immunization; Z88.8 Allergy status to other drugs, medicaments and biological substances; Z88.6 Allergy status to analgesic agent
CPT/HCPCS: 82306; 84132; 87081; 99285; G0480; G0482; J1200

== ENCOUNTER 2016-12-18 23:14 | Inpatient (IN) | payer MEDICARE, MEDICAID ==
[~2016-12-18] VITALS: Ht 170.2 cm; Wt 78.7 kg
[~2016-12-18 23:14] MED LIST changes: -AMLO2.5T PO; +VITAD1000 PO
[2016-12-18 23:53] LABS: BASOPHILS % (AUTO) 0.3 % (0.0-2.0); EOSINOPHILS % (AUTO) 0.1 % (1.0-6.0); HEMATOCRIT 39.4 % (41-53); LYMPHOCYTES # (AUTO) 1.6 K/uL (1.0-4.8); LYMPHOCYTES % (AUTO) 16.1 % (22.0-44.0); MEAN CORPUSCULAR HEMOGLOBIN 28.5 pg (26.0-34.0); MEAN CORPUSCULAR VOLUME 86 fL (80-100); MONOCYTES # (AUTO) 0.8 K/uL (0.1-1.0); NEUTROPHILS # (AUTO) 7.3 K/uL (1.8-7.7); NEUTROPHILS % (AUTO) 75.5 % (40.0-70.0); PLATELET COUNT (AUTO) 267 K/uL (150-450); RED BLOOD CELL COUNT(AUTO) 4.58 MIL/uL (4.50-5.90); RED CELL DISTRIBUTION WIDTH 12.9 % (11.5-14.5); WHITE BLOOD COUNT (AUTO) 9.6 K/uL (4.5-11.0)
[2016-12-18 23:59] LABS: ANION GAP 13 mmol/L (8-16); CALCIUM, TOTAL 9.6 mg/dL (8.8-10.5); CARBON DIOXIDE 25 mmol/L (22-29); CHLORIDE 100 mmol/L (98-107); CREATININE 1.32 mg/dL (0.60-1.30); GLOMERULAR FILTR. RATE CALC 54 mL/min (>60); SODIUM SERUM 138 mmol/L (136-145); UREA NITROGEN, BLOOD 26 mg/dL (7-18)
[2016-12-19 00:04] LABS: ALANINE AMINOTRANSFERASE 38 U/L (12-78); ASPARTATE AMINOTRANSFERASE 28 U/L (15-37); BILIRUBIN,TOTAL 0.6 mg/dL (0.1-1.0); TOTAL PROTEIN, SERUM 8.5 g/dL (6.4-8.2)
[2016-12-19 02:20] VITALS: BP 128/61
[2016-12-19 04:11] VITALS: BP 133/86
[2016-12-19] MEDS ORDERED: PNEUMOCOCCAL VACCINE POLYVALENT 0.5 ML VIAL [PPSV23] IM ONE (05:45)
[2016-12-19] MEDS ORDERED: BACITRACIN 28.4 GM OINTMENT TP PRN (08:15)
[2016-12-19] MEDS ORDERED: MAG HYDROX/AL HYDROX/SIMETH ES 30 ML SUSPENSION UDCUP PO PRN (08:15)
[2016-12-19] MEDS ORDERED: PETROLATUM,WHITE 71 GM JELLY TP PRN (08:15)
[2016-12-19] MEDS ORDERED: MAGNESIUM HYDROXIDE SUSPENSION 30 ML UDCUP PO PRN (08:15)
[2016-12-19] MEDS ORDERED: BENZOCAINE/MENTHOL LOZENGE [8 LOZENGES/PACKET] MM PRN (08:15)
[2016-12-19] MEDS ORDERED: LOPERAMIDE HCL 2 MG CAPSULE PO PRN (08:15)
[2016-12-19] MEDS ORDERED: ONDANSETRON HCL 4 MG TABLET PO PRN (08:15)
[2016-12-19] MEDS ORDERED: CloNIDine HCL 0.1 MG TABLET PO PRN (08:15)
[2016-12-19] MEDS ORDERED: ALBUTEROL SULFATE HFA 90 MCG/PUFF 8 GM INHALER IH PRN (08:15)
[2016-12-19] MEDS ORDERED: ACETAMINOPHEN 325 MG TABLET PO PRN (08:15)
[2016-12-19 09:00] VITALS: BP 132/65
[2016-12-19] MEDS: OMEPRAZOLE 20 MG CAPSULE PO SCH (10:21)
[2016-12-19] MEDS: FLUoxetine HCL 20 MG CAPSULE PO SCH (10:21)
[2016-12-19] MEDS: LevETIRAcetam 500 MG TABLET PO SCH ×2 (10:21→17:07)
[2016-12-19] MEDS: DOCUSATE SODIUM 100 MG CAPSULE PO SCH (10:21)
[2016-12-19] MEDS: CHOLECALCIFEROL (VIT D3) 1,000 UNITS TABLET PO SCH (10:22)
[2016-12-19] MEDS: LACTULOSE 20 GM/30 ML SOLUTION UDCUP PO SCH (10:22)
[2016-12-19 16:25] VITALS: BP 130/76
[2016-12-19] MEDS: QUEtiapine FUMARATE 300 MG ER TABLET PO SCH (20:50)
[2016-12-20 08:00] VITALS: BP 116/61
[2016-12-20] MEDS: OMEPRAZOLE 20 MG CAPSULE PO SCH (12:23)
[2016-12-20] MEDS: CHOLECALCIFEROL (VIT D3) 1,000 UNITS TABLET PO SCH (12:23)
[2016-12-20] MEDS: LACTULOSE 20 GM/30 ML SOLUTION UDCUP PO SCH (12:23)
[2016-12-20] MEDS: DOCUSATE SODIUM 100 MG CAPSULE PO SCH (12:23)
[2016-12-20] MEDS: LevETIRAcetam 500 MG TABLET PO SCH ×2 (12:23→16:14)
[2016-12-20] MEDS: FLUoxetine HCL 20 MG CAPSULE PO SCH (12:24)
[2016-12-20 17:46] VITALS: BP 128/76
[2016-12-20 20:15] VITALS: BP 105/68
[2016-12-20] MEDS: QUEtiapine FUMARATE 300 MG ER TABLET PO SCH (20:34)
[2016-12-20 21:19] VITALS: BP 105/68
[2016-12-21 03:56] VITALS: BP 114/66
[2016-12-21] MEDS: LORazepam 2 MG TABLET PO PRN (07:53)
[2016-12-21] MEDS: OMEPRAZOLE 20 MG CAPSULE PO SCH (07:53)
[2016-12-21] MEDS: HALOPERIDOL 5 MG TABLET PO PRN (07:53)
[2016-12-21] MEDS: FLUoxetine HCL 20 MG CAPSULE PO SCH (07:53)
[2016-12-21] MEDS: DOCUSATE SODIUM 100 MG CAPSULE PO SCH (07:54)
[2016-12-21] MEDS: LACTULOSE 20 GM/30 ML SOLUTION UDCUP PO SCH (07:54)
[2016-12-21] MEDS: LevETIRAcetam 500 MG TABLET PO SCH ×2 (07:54→16:07)
[2016-12-21] MEDS: CHOLECALCIFEROL (VIT D3) 1,000 UNITS TABLET PO SCH (07:54)
[2016-12-21 08:00] VITALS: BP 115/78
[2016-12-21 16:07] VITALS: BP 118/75
[2016-12-21] MEDS: IBUPROFEN 600 MG TABLET PO PRN (17:45)
[2016-12-21 17:50] VITALS: BP 120/69
[2016-12-21] MEDS: QUEtiapine FUMARATE 300 MG ER TABLET PO SCH (20:17)
[2016-12-22 00:30] VITALS: BP 102/71
[2016-12-22] MEDS: ZOLPIDEM TARTRATE 10 MG TABLET PO PRN (03:06)
[2016-12-22] MEDS: CHOLECALCIFEROL (VIT D3) 1,000 UNITS TABLET PO SCH (10:29)
[2016-12-22] MEDS: LACTULOSE 20 GM/30 ML SOLUTION UDCUP PO SCH ×3 (10:29→23:57)
[2016-12-22] MEDS: DOCUSATE SODIUM 100 MG CAPSULE PO SCH (10:30)
[2016-12-22] MEDS: LevETIRAcetam 500 MG TABLET PO SCH ×2 (10:30→16:14)
[2016-12-22] MEDS: OMEPRAZOLE 20 MG CAPSULE PO SCH (10:30)
[2016-12-22] MEDS: FLUoxetine HCL 20 MG CAPSULE PO SCH (10:30)
[2016-12-22] MEDS: HALOPERIDOL 5 MG TABLET PO PRN (10:30)
[2016-12-22 12:38] VITALS: BP 113/76
[2016-12-22 17:51] VITALS: BP 97/67
[2016-12-22] MEDS: QUEtiapine FUMARATE 300 MG ER TABLET PO SCH (20:14)
[2016-12-23 01:16] VITALS: BP 127/78
[2016-12-23] MEDS: DOCUSATE SODIUM 100 MG CAPSULE PO SCH (08:25)
[2016-12-23] MEDS: LACTULOSE 20 GM/30 ML SOLUTION UDCUP PO SCH ×3 (08:25→16:00)
[2016-12-23] MEDS: CHOLECALCIFEROL (VIT D3) 1,000 UNITS TABLET PO SCH (08:26)
[2016-12-23] MEDS: FLUoxetine HCL 20 MG CAPSULE PO SCH (08:26)
[2016-12-23] MEDS: LevETIRAcetam 500 MG TABLET PO SCH ×2 (08:27→16:45)
[2016-12-23] MEDS: OMEPRAZOLE 20 MG CAPSULE PO SCH (08:27)
[2016-12-23] MEDS: LORazepam 2 MG TABLET PO PRN (08:29)
[2016-12-23 09:06] VITALS: BP 111/75
[2016-12-23 17:43] VITALS: BP 128/91
[2016-12-23] MEDS: QUEtiapine FUMARATE 300 MG ER TABLET PO SCH (21:02)
[2016-12-23] MEDS: ZOLPIDEM TARTRATE 10 MG TABLET PO PRN (23:16)
[2016-12-24] MEDS: LACTULOSE 20 GM/30 ML SOLUTION UDCUP PO SCH ×4 (00:28→23:55)
[2016-12-24 05:11] VITALS: BP 122/74
[2016-12-24 08:00] VITALS: BP 114/74
[2016-12-24] MEDS: LORazepam 2 MG TABLET PO PRN (08:22)
[2016-12-24] MEDS: DOCUSATE SODIUM 100 MG CAPSULE PO SCH (08:39)
[2016-12-24] MEDS: FLUoxetine HCL 20 MG CAPSULE PO SCH (08:39)
[2016-12-24] MEDS: LevETIRAcetam 500 MG TABLET PO SCH ×2 (08:39→17:38)
[2016-12-24] MEDS: OMEPRAZOLE 20 MG CAPSULE PO SCH (08:39)
[2016-12-24] MEDS: CHOLECALCIFEROL (VIT D3) 1,000 UNITS TABLET PO SCH (08:39)
[2016-12-24 16:47] VITALS: BP 109/69
[2016-12-24] MEDS: FERROUS SULFATE 325 MG EC TABLET PO SCH (17:39)
[2016-12-24] MEDS: QUEtiapine FUMARATE 300 MG ER TABLET PO SCH (20:32)
[2016-12-25] MEDS: FERROUS SULFATE 325 MG EC TABLET PO SCH ×2 (06:42→19:53)
[2016-12-25 08:44] VITALS: BP 108/66
[2016-12-25] MEDS ORDERED: LACTULOSE 20 GM/30 ML SOLUTION UDCUP PO SCH (09:00)
[2016-12-25] MEDS: FLUoxetine HCL 20 MG CAPSULE PO SCH (09:07)
[2016-12-25] MEDS: OMEPRAZOLE 20 MG CAPSULE PO SCH (09:07)
[2016-12-25] MEDS: CHOLECALCIFEROL (VIT D3) 1,000 UNITS TABLET PO SCH (09:07)
[2016-12-25] MEDS: DOCUSATE SODIUM 100 MG CAPSULE PO SCH (09:07)
[2016-12-25] MEDS: LevETIRAcetam 500 MG TABLET PO SCH ×2 (09:09→17:10)
[2016-12-25] MEDS: LACTULOSE 20 GM/30 ML SOLUTION UDCUP PO SCH ×3 (09:37→23:59)
[2016-12-25 16:34] VITALS: BP 104/60
[2016-12-25] MEDS: QUEtiapine FUMARATE 300 MG ER TABLET PO SCH (20:39)
[2016-12-26 05:25] VITALS: BP 108/69
[2016-12-26] MEDS: FERROUS SULFATE 325 MG EC TABLET PO SCH ×2 (06:58→18:24)
[2016-12-26] MEDS: LACTULOSE 20 GM/30 ML SOLUTION UDCUP PO SCH ×2 (08:00→15:54)
[2016-12-26] MEDS: DOCUSATE SODIUM 100 MG CAPSULE PO SCH (09:00)
[2016-12-26] MEDS: LevETIRAcetam 500 MG TABLET PO SCH ×2 (09:00→15:54)
[2016-12-26] MEDS: CHOLECALCIFEROL (VIT D3) 1,000 UNITS TABLET PO SCH (09:00)
[2016-12-26] MEDS: OMEPRAZOLE 20 MG CAPSULE PO SCH (09:00)
[2016-12-26] MEDS: FLUoxetine HCL 20 MG CAPSULE PO SCH (09:00)
[2016-12-26 09:06] VITALS: BP 114/65
[2016-12-26 16:09] VITALS: BP 112/79
[2016-12-26] MEDS: QUEtiapine FUMARATE 300 MG ER TABLET PO SCH (21:01)
[2016-12-27] MEDS: LACTULOSE 20 GM/30 ML SOLUTION UDCUP PO SCH ×3 (00:01→16:11)
[2016-12-27] MEDS: ZOLPIDEM TARTRATE 10 MG TABLET PO PRN (01:22)
[2016-12-27] MEDS: FERROUS SULFATE 325 MG EC TABLET PO SCH ×2 (06:40→16:53)
[2016-12-27] MEDS: OMEPRAZOLE 20 MG CAPSULE PO SCH (09:54)
[2016-12-27] MEDS: FLUoxetine HCL 20 MG CAPSULE PO SCH (09:54)
[2016-12-27] MEDS: LevETIRAcetam 500 MG TABLET PO SCH ×2 (09:54→16:12)
[2016-12-27] MEDS: DOCUSATE SODIUM 100 MG CAPSULE PO SCH (10:02)
[2016-12-27] MEDS: CHOLECALCIFEROL (VIT D3) 1,000 UNITS TABLET PO SCH (10:08)
[2016-12-27 12:25] VITALS: BP 115/69
[2016-12-27 16:13] VITALS: BP 118/74
[2016-12-27] MEDS: LORazepam 2 MG TABLET PO PRN (19:57)
[2016-12-27] MEDS: QUEtiapine FUMARATE 300 MG ER TABLET PO SCH (20:12)
[2016-12-28] MEDS: LACTULOSE 20 GM/30 ML SOLUTION UDCUP PO SCH ×3 (01:04→17:06)
[2016-12-28] MEDS: ZOLPIDEM TARTRATE 10 MG TABLET PO PRN (02:26)
[2016-12-28 06:16] VITALS: BP 116/76
[2016-12-28] MEDS: FERROUS SULFATE 325 MG EC TABLET PO SCH ×2 (06:31→17:07)
[2016-12-28 08:07] VITALS: BP 113/77
[2016-12-28] MEDS: FLUoxetine HCL 20 MG CAPSULE PO SCH (09:24)
[2016-12-28] MEDS: DOCUSATE SODIUM 100 MG CAPSULE PO SCH (09:24)
[2016-12-28] MEDS: LevETIRAcetam 500 MG TABLET PO SCH ×2 (09:24→17:07)
[2016-12-28] MEDS: CHOLECALCIFEROL (VIT D3) 1,000 UNITS TABLET PO SCH (09:24)
[2016-12-28] MEDS: OMEPRAZOLE 20 MG CAPSULE PO SCH (09:24)
[2016-12-28 16:18] VITALS: BP 110/69
[2016-12-28] MEDS: QUEtiapine FUMARATE 300 MG ER TABLET PO SCH (21:00)
[2016-12-29 05:02] VITALS: BP 115/68
[2016-12-29] MEDS: FERROUS SULFATE 325 MG EC TABLET PO SCH ×2 (07:01→19:52)
[2016-12-29] MEDS: FLUoxetine HCL 20 MG CAPSULE PO SCH (09:17)
[2016-12-29] MEDS: CHOLECALCIFEROL (VIT D3) 1,000 UNITS TABLET PO SCH (09:17)
[2016-12-29] MEDS: LevETIRAcetam 500 MG TABLET PO SCH ×2 (09:17→16:20)
[2016-12-29] MEDS: LACTULOSE 20 GM/30 ML SOLUTION UDCUP PO SCH ×3 (09:17→16:20)
[2016-12-29] MEDS: OMEPRAZOLE 20 MG CAPSULE PO SCH (09:17)
[2016-12-29] MEDS: DOCUSATE SODIUM 100 MG CAPSULE PO SCH (09:17)
[2016-12-29 13:50] VITALS: BP 131/60
[2016-12-29] MEDS: QUEtiapine FUMARATE 300 MG ER TABLET PO SCH (20:06)
[2016-12-29 21:43] VITALS: BP 127/69
[2016-12-30] MEDS: LACTULOSE 20 GM/30 ML SOLUTION UDCUP PO SCH ×3 (00:34→16:15)
[2016-12-30] MEDS: FERROUS SULFATE 325 MG EC TABLET PO SCH ×2 (06:32→19:47)
[2016-12-30 06:33] LABS: ALANINE AMINOTRANSFERASE 32 U/L (12-78); ALBUMIN 3.2 g/dL (3.4-5.0); ANION GAP 9 mmol/L (8-16); ASPARTATE AMINOTRANSFERASE 18 U/L (15-37); BILIRUBIN,TOTAL 0.2 mg/dL (0.1-1.0); CALCIUM, TOTAL 8.7 mg/dL (8.8-10.5); CARBON DIOXIDE 28 mmol/L (22-29); CHLORIDE 104 mmol/L (98-107); CREATININE 0.95 mg/dL (0.60-1.30); GLOMERULAR FILTR. RATE CALC > 60 mL/min (>60); PHOSPHORUS 3.2 mg/dL (2.5-4.9); POTASSIUM 3.6 mmol/L (3.5-5.1); SODIUM SERUM 141 mmol/L (136-145); TOTAL PROTEIN, SERUM 7.1 g/dL (6.4-8.2); UREA NITROGEN, BLOOD 15 mg/dL (7-18)
[2016-12-30 07:17] LABS: BASOPHILS % (AUTO) 0.4 % (0.0-2.0); EOSINOPHILS % (AUTO) 1.7 % (1.0-6.0); HEMATOCRIT 38.4 % (41-53); HEMOGLOBIN 12.6 g/dL (13.5-17.5); LYMPHOCYTES # (AUTO) 2.1 K/uL (1.0-4.8); LYMPHOCYTES % (AUTO) 37.7 % (22.0-44.0); MEAN CORPUSCULAR HEMOGLOBIN 28.7 pg (26.0-34.0); MEAN CORPUSCULAR HGB CONC 32.8 G/dL (31.0-37.0); MEAN CORPUSCULAR VOLUME 87 fL (80-100); MONOCYTES # (AUTO) 0.5 K/uL (0.1-1.0); MONOCYTES % (AUTO) 9.5 % (2.0-9.0); NEUTROPHILS # (AUTO) 2.8 K/uL (1.8-7.7); NEUTROPHILS % (AUTO) 50.7 % (40.0-70.0); PLATELET COUNT (AUTO) 216 K/uL (150-450); RED CELL DISTRIBUTION WIDTH 13.1 % (11.5-14.5); WHITE BLOOD COUNT (AUTO) 5.5 K/uL (4.5-11.0)
[2016-12-30 11:00] VITALS: BP 104/73
[2016-12-30] MEDS: LevETIRAcetam 500 MG TABLET PO SCH ×2 (11:16→16:15)
[2016-12-30] MEDS: CHOLECALCIFEROL (VIT D3) 1,000 UNITS TABLET PO SCH (11:16)
[2016-12-30] MEDS: FLUoxetine HCL 20 MG CAPSULE PO SCH (11:16)
[2016-12-30] MEDS: DOCUSATE SODIUM 100 MG CAPSULE PO SCH (11:17)
[2016-12-30] MEDS: OMEPRAZOLE 20 MG CAPSULE PO SCH (11:17)
[2016-12-30 17:31] VITALS: BP 105/67
[2016-12-30] MEDS: QUEtiapine FUMARATE 300 MG ER TABLET PO SCH (20:18)
[2016-12-31] MEDS: LACTULOSE 20 GM/30 ML SOLUTION UDCUP PO SCH ×4 (00:01→23:39)
[2016-12-31] MEDS: FERROUS SULFATE 325 MG EC TABLET PO SCH ×2 (06:41→16:37)
[2016-12-31] MEDS: FLUoxetine HCL 20 MG CAPSULE PO SCH (08:45)
[2016-12-31] MEDS: CHOLECALCIFEROL (VIT D3) 1,000 UNITS TABLET PO SCH (08:45)
[2016-12-31] MEDS: LevETIRAcetam 500 MG TABLET PO SCH ×2 (08:45→16:37)
[2016-12-31] MEDS: OMEPRAZOLE 20 MG CAPSULE PO SCH (08:46)
[2016-12-31] MEDS: DOCUSATE SODIUM 100 MG CAPSULE PO SCH (08:46)
[2016-12-31 08:55] VITALS: BP 136/72
[2016-12-31 16:09] VITALS: BP 133/78
[2016-12-31] MEDS: QUEtiapine FUMARATE 300 MG ER TABLET PO SCH (20:35)
[2017-01-01 05:30] VITALS: BP 129/76
[2017-01-01] MEDS: FERROUS SULFATE 325 MG EC TABLET PO SCH ×2 (07:02→16:53)
[2017-01-01 08:00] VITALS: BP 100/60
[2017-01-01] MEDS: LACTULOSE 20 GM/30 ML SOLUTION UDCUP PO SCH ×3 (08:02→16:53)
[2017-01-01] MEDS: FLUoxetine HCL 20 MG CAPSULE PO SCH (08:02)
[2017-01-01] MEDS: LevETIRAcetam 500 MG TABLET PO SCH ×2 (08:02→16:53)
[2017-01-01] MEDS: DOCUSATE SODIUM 100 MG CAPSULE PO SCH (08:03)
[2017-01-01] MEDS: OMEPRAZOLE 20 MG CAPSULE PO SCH (08:03)
[2017-01-01] MEDS: CHOLECALCIFEROL (VIT D3) 1,000 UNITS TABLET PO SCH (08:03)
[2017-01-01] MEDS: IBUPROFEN 600 MG TABLET PO PRN (08:05)
[2017-01-01] MEDS: QUEtiapine FUMARATE 300 MG ER TABLET PO SCH (20:01)
[2017-01-01 21:14] VITALS: BP 111/65
[2017-01-02] MEDS: LACTULOSE 20 GM/30 ML SOLUTION UDCUP PO SCH ×3 (00:17→18:08)
[2017-01-02 00:18] VITALS: BP 117/52
[2017-01-02] MEDS: FERROUS SULFATE 325 MG EC TABLET PO SCH ×2 (07:01→18:07)
[2017-01-02 08:04] VITALS: BP 104/68
[2017-01-02] MEDS: OMEPRAZOLE 20 MG CAPSULE PO SCH (09:44)
[2017-01-02] MEDS: FLUoxetine HCL 20 MG CAPSULE PO SCH (09:44)
[2017-01-02] MEDS: LevETIRAcetam 500 MG TABLET PO SCH ×2 (09:44→18:07)
[2017-01-02] MEDS: DOCUSATE SODIUM 100 MG CAPSULE PO SCH (09:44)
[2017-01-02] MEDS: CHOLECALCIFEROL (VIT D3) 1,000 UNITS TABLET PO SCH (09:44)
[2017-01-02 16:00] VITALS: BP 118/62
[2017-01-02] MEDS: QUEtiapine FUMARATE 300 MG ER TABLET PO SCH (21:41)
[2017-01-03] MEDS: LACTULOSE 20 GM/30 ML SOLUTION UDCUP PO SCH ×3 (00:11→16:05)
[2017-01-03 00:28] VITALS: BP 127/65
[2017-01-03] MEDS: LORazepam 2 MG TABLET PO PRN (02:59)
[2017-01-03] MEDS: FERROUS SULFATE 325 MG EC TABLET PO SCH ×2 (06:42→17:31)
[2017-01-03 08:04] VITALS: BP 128/83
[2017-01-03] MEDS: FLUoxetine HCL 20 MG CAPSULE PO SCH (08:40)
[2017-01-03] MEDS: LevETIRAcetam 500 MG TABLET PO SCH ×2 (08:41→16:06)
[2017-01-03] MEDS: CHOLECALCIFEROL (VIT D3) 1,000 UNITS TABLET PO SCH (08:41)
[2017-01-03] MEDS: DOCUSATE SODIUM 100 MG CAPSULE PO SCH (08:42)
[2017-01-03] MEDS: OMEPRAZOLE 20 MG CAPSULE PO SCH (08:42)
[2017-01-03 19:04] VITALS: BP 130/84
[2017-01-03] MEDS: QUEtiapine FUMARATE 300 MG ER TABLET PO SCH (20:13)
[2017-01-04] MEDS: LACTULOSE 20 GM/30 ML SOLUTION UDCUP PO SCH ×4 (00:05→23:52)
[2017-01-04 00:49] VITALS: BP 126/85
[2017-01-04] MEDS: FERROUS SULFATE 325 MG EC TABLET PO SCH ×2 (06:43→17:29)
[2017-01-04 09:05] VITALS: BP 124/72
[2017-01-04] MEDS: FLUoxetine HCL 20 MG CAPSULE PO SCH (09:24)
[2017-01-04] MEDS: DOCUSATE SODIUM 100 MG CAPSULE PO SCH (09:24)
[2017-01-04] MEDS: CHOLECALCIFEROL (VIT D3) 1,000 UNITS TABLET PO SCH (09:25)
[2017-01-04] MEDS: OMEPRAZOLE 20 MG CAPSULE PO SCH (09:25)
[2017-01-04] MEDS: LevETIRAcetam 500 MG TABLET PO SCH ×2 (09:25→17:29)
[2017-01-04 17:36] VITALS: BP 123/57
[2017-01-04] MEDS: QUEtiapine FUMARATE 300 MG ER TABLET PO SCH (20:38)
[2017-01-05 01:03] VITALS: BP 114/73
[2017-01-05] MEDS: HALOPERIDOL 5 MG TABLET PO PRN (03:57)
[2017-01-05] MEDS: FERROUS SULFATE 325 MG EC TABLET PO SCH ×2 (06:56→16:51)
[2017-01-05 08:15] VITALS: BP 118/74
[2017-01-05] MEDS: OMEPRAZOLE 20 MG CAPSULE PO SCH (09:29)
[2017-01-05] MEDS: DOCUSATE SODIUM 100 MG CAPSULE PO SCH (09:29)
[2017-01-05] MEDS: CHOLECALCIFEROL (VIT D3) 1,000 UNITS TABLET PO SCH (09:29)
[2017-01-05] MEDS: LACTULOSE 20 GM/30 ML SOLUTION UDCUP PO SCH ×3 (09:29→23:43)
[2017-01-05] MEDS: FLUoxetine HCL 20 MG CAPSULE PO SCH (09:29)
[2017-01-05] MEDS: LevETIRAcetam 500 MG TABLET PO SCH ×2 (09:30→16:52)
[2017-01-05 17:45] VITALS: BP 125/77
[2017-01-05] MEDS: QUEtiapine FUMARATE 300 MG ER TABLET PO SCH (20:46)
[2017-01-06] MEDS: FERROUS SULFATE 325 MG EC TABLET PO SCH ×2 (06:43→16:39)
[2017-01-06] MEDS: FLUoxetine HCL 20 MG CAPSULE PO SCH (08:40)
[2017-01-06] MEDS: OMEPRAZOLE 20 MG CAPSULE PO SCH (08:41)
[2017-01-06] MEDS: DOCUSATE SODIUM 100 MG CAPSULE PO SCH (08:41)
[2017-01-06] MEDS: LevETIRAcetam 500 MG TABLET PO SCH ×2 (08:41→16:39)
[2017-01-06] MEDS: CHOLECALCIFEROL (VIT D3) 1,000 UNITS TABLET PO SCH (08:41)
[2017-01-06] MEDS: LACTULOSE 20 GM/30 ML SOLUTION UDCUP PO SCH ×3 (08:42→23:50)
[2017-01-06 09:36] VITALS: BP 118/83
[2017-01-06 17:45] VITALS: BP 106/65
[2017-01-06] MEDS: QUEtiapine FUMARATE 300 MG ER TABLET PO SCH (20:48)
[2017-01-07] MEDS: FERROUS SULFATE 325 MG EC TABLET PO SCH ×2 (06:45→17:30)
[2017-01-07 08:00] VITALS: BP 111/67
[2017-01-07] MEDS: OMEPRAZOLE 20 MG CAPSULE PO SCH (08:10)
[2017-01-07] MEDS: DOCUSATE SODIUM 100 MG CAPSULE PO SCH (08:10)
[2017-01-07] MEDS: FLUoxetine HCL 20 MG CAPSULE PO SCH (08:10)
[2017-01-07] MEDS: LACTULOSE 20 GM/30 ML SOLUTION UDCUP PO SCH ×2 (08:10→16:30)
[2017-01-07] MEDS: LevETIRAcetam 500 MG TABLET PO SCH ×2 (08:10→16:31)
[2017-01-07] MEDS: CHOLECALCIFEROL (VIT D3) 1,000 UNITS TABLET PO SCH (08:11)
[2017-01-07] MEDS: LORazepam 2 MG TABLET PO PRN (08:47)
[2017-01-07] MEDS ORDERED: FERR-89 PO (12:37)
[2017-01-07] MEDS ORDERED: LACT10SO9 PO (12:37)
== END 2017-01-07 18:15 | disposition home or self-care (01) | DRG 750 ==
LOC: EMS 23:17 → EEVIPCON 23:17 → 3EI 12-19 02:15
PROVIDERS: ADMIT Psychiatry & Neurology Psychiatry; ATTEND Psychiatry & Neurology Psychiatry
DX: F20.9 Schizophrenia, unspecified (principal); N17.9 Acute kidney failure, unspecified; J44.9 Chronic obstructive pulmonary disease, unspecified; R45.851 Suicidal ideations; G40.909 Epilepsy, unspecified, not intractable, without status epilepticus; F25.1 Schizoaffective disorder, depressive type; I10 Essential (primary) hypertension; B18.2 Chronic viral hepatitis C; F17.210 Nicotine dependence, cigarettes, uncomplicated; F10.20 Alcohol dependence, uncomplicated; D64.9 Anemia, unspecified; Z96.698 Presence of other orthopedic joint implants; K21.9 Gastro-esophageal reflux disease without esophagitis; M19.90 Unspecified osteoarthritis, unspecified site; Z91.81 History of falling; Z28.21 Immunization not carried out because of patient refusal; Z59.0 Homelessness; Z71.6 Tobacco abuse counseling
CPT/HCPCS: 83735; 84100; 87081; 97110; 97116; 97161; 97165; 99285; 99406; G0480; G9016; J3535

== ENCOUNTER 2017-01-09 17:50 | Emergency (ER) | payer MEDICARE, OTHER ==
[~2017-01-09] VITALS: Ht 177.8 cm; Wt 79.5 kg
[~2017-01-09 17:50] MED LIST changes: +FERR-89 PO; +LACT10SO9 PO
[2017-01-09 19:43] LABS: BASOPHILS # (AUTO) 0.02 K/uL (0.00-0.20); BASOPHILS % (AUTO) 0.3 % (0.0-2.0); EOSINOPHILS # (AUTO) 0.11 K/uL (0.00-0.70); HEMATOCRIT 38.5 % (41-53); HEMOGLOBIN 12.8 g/dL (13.5-17.5); LYMPHOCYTES % (AUTO) 27.4 % (22.0-44.0); MEAN CORPUSCULAR HGB CONC 33.2 G/dL (31.0-37.0); MEAN CORPUSCULAR VOLUME 87 fL (80-100); MONOCYTES # (AUTO) 0.7 K/uL (0.1-1.0); MONOCYTES % (AUTO) 9.7 % (2.0-9.0); NEUTROPHILS # (AUTO) 4.5 K/uL (1.8-7.7); NEUTROPHILS % (AUTO) 61.2 % (40.0-70.0); PLATELET COUNT (AUTO) 176 K/uL (150-450); RED BLOOD CELL COUNT(AUTO) 4.41 MIL/uL (4.50-5.90); RED CELL DISTRIBUTION WIDTH 14.4 % (11.5-14.5); WHITE BLOOD COUNT (AUTO) 7.3 K/uL (4.5-11.0)
[2017-01-09 19:50] LABS: ANION GAP 4 mmol/L (8-16); CARBON DIOXIDE 32 mmol/L (22-29); CHLORIDE 105 mmol/L (98-107); CREATININE 1.04 mg/dL (0.60-1.30); GLOMERULAR FILTR. RATE CALC > 60 mL/min (>60); POTASSIUM 4.3 mmol/L (3.5-5.1); SODIUM SERUM 141 mmol/L (136-145); UREA NITROGEN, BLOOD 14 mg/dL (7-18)
[2017-01-09 19:56] LABS: ALANINE AMINOTRANSFERASE 31 U/L (12-78); ALBUMIN 3.7 g/dL (3.4-5.0); ASPARTATE AMINOTRANSFERASE 20 U/L (15-37); BILIRUBIN,TOTAL 0.4 mg/dL (0.1-1.0); TOTAL PROTEIN, SERUM 7.5 g/dL (6.4-8.2)
[2017-01-09] MEDS ORDERED: QUEtiapine FUMARATE 100 MG TABLET PO ONE (20:45)
[2017-01-09 21:19] VITALS: BP 134/75
== END 2017-01-09 21:26 | disposition home or self-care (01) ==
LOC: EMS 17:55
DX: F20.9 Schizophrenia, unspecified (principal); F17.210 Nicotine dependence, cigarettes, uncomplicated; Z88.5 Allergy status to narcotic agent
CPT/HCPCS: 36415; 80053; 85025; 99284; G0480

== ENCOUNTER 2017-01-12 13:29 | Inpatient (IN) | payer MEDICARE, MEDICAID ==
[~2017-01-12] VITALS: Ht 177.8 cm; Wt 80.3 kg
[2017-01-12 14:20] LABS: BASOPHILS % (AUTO) 0.3 % (0.0-2.0); EOSINOPHILS % (AUTO) 0.5 % (1.0-6.0); HEMATOCRIT 40.8 % (41-53); HEMOGLOBIN 13.4 g/dL (13.5-17.5); LYMPHOCYTES # (AUTO) 1.2 K/uL (1.0-4.8); MEAN CORPUSCULAR HEMOGLOBIN 28.5 pg (26.0-34.0); MEAN CORPUSCULAR HGB CONC 32.9 G/dL (31.0-37.0); MEAN CORPUSCULAR VOLUME 87 fL (80-100); MONOCYTES # (AUTO) 0.7 K/uL (0.1-1.0); MONOCYTES % (AUTO) 9.9 % (2.0-9.0); NEUTROPHILS # (AUTO) 5.3 K/uL (1.8-7.7); NEUTROPHILS % (AUTO) 72.3 % (40.0-70.0); PLATELET COUNT (AUTO) 179 K/uL (150-450); RED BLOOD CELL COUNT(AUTO) 4.71 MIL/uL (4.50-5.90); RED CELL DISTRIBUTION WIDTH 13.8 % (11.5-14.5); WHITE BLOOD COUNT (AUTO) 7.3 K/uL (4.5-11.0)
[2017-01-12 14:27] LABS: ANION GAP 9 mmol/L (8-16); CALCIUM, TOTAL 9.1 mg/dL (8.8-10.5); CARBON DIOXIDE 28 mmol/L (22-29); CHLORIDE 101 mmol/L (98-107); CREATININE 1.33 mg/dL (0.60-1.30); GLOMERULAR FILTR. RATE CALC 54 mL/min (>60); POTASSIUM 3.9 mmol/L (3.5-5.1); SODIUM SERUM 138 mmol/L (136-145); UREA NITROGEN, BLOOD 21 mg/dL (7-18)
[2017-01-12 14:33] LABS: ALANINE AMINOTRANSFERASE 35 U/L (12-78); ALBUMIN 3.8 g/dL (3.4-5.0); ASPARTATE AMINOTRANSFERASE 24 U/L (15-37); BILIRUBIN,TOTAL 0.6 mg/dL (0.1-1.0); TOTAL PROTEIN, SERUM 7.8 g/dL (6.4-8.2)
[2017-01-12 23:12] VITALS: BP 97/65
[2017-01-13] MEDS ORDERED: BACITRACIN 28.4 GM OINTMENT TP PRN (08:15)
[2017-01-13] MEDS ORDERED: ACETAMINOPHEN 325 MG TABLET PO PRN (08:15)
[2017-01-13] MEDS ORDERED: LOPERAMIDE HCL 2 MG CAPSULE PO PRN (08:15)
[2017-01-13] MEDS ORDERED: MAGNESIUM HYDROXIDE SUSPENSION 30 ML UDCUP PO PRN (08:15)
[2017-01-13] MEDS ORDERED: BENZOCAINE/MENTHOL LOZENGE [8 LOZENGES/PACKET] MM PRN (08:15)
[2017-01-13] MEDS ORDERED: CloNIDine HCL 0.1 MG TABLET PO PRN (08:15)
[2017-01-13] MEDS ORDERED: MAG HYDROX/AL HYDROX/SIMETH ES 30 ML SUSPENSION UDCUP PO PRN (08:15)
[2017-01-13] MEDS ORDERED: ALBUTEROL SULFATE HFA 90 MCG/PUFF 8 GM INHALER IH PRN (08:15)
[2017-01-13] MEDS ORDERED: ONDANSETRON HCL 4 MG TABLET PO PRN (08:15)
[2017-01-13] MEDS ORDERED: PETROLATUM,WHITE 71 GM JELLY TP PRN (08:15)
[2017-01-13 08:54] VITALS: BP 113/57
[2017-01-13] MEDS: OMEPRAZOLE 20 MG CAPSULE PO SCH (10:23)
[2017-01-13] MEDS: LevETIRAcetam 500 MG TABLET PO SCH ×2 (10:24→15:57)
[2017-01-13] MEDS: MULTIVITAMINS WITH MINERALS, THERAPEUTIC TABLET PO SCH (10:24)
[2017-01-13] MEDS: CHOLECALCIFEROL (VIT D3) 1,000 UNITS TABLET PO SCH (10:24)
[2017-01-13] MEDS: NICOTINE 21 MG/24 HOUR PATCH TD SCH (10:32)
[2017-01-13] MEDS: LACTULOSE 20 GM/30 ML SOLUTION UDCUP PO SCH (10:32)
[2017-01-13 16:06] VITALS: BP 118/80
[2017-01-13] MEDS: QUEtiapine FUMARATE 300 MG ER TABLET PO SCH (20:47)
[2017-01-14 06:54] VITALS: BP 115/60
[2017-01-14 08:04] VITALS: BP 118/64
[2017-01-14] MEDS: OMEPRAZOLE 20 MG CAPSULE PO SCH (09:35)
[2017-01-14] MEDS: LevETIRAcetam 500 MG TABLET PO SCH ×2 (09:36→15:54)
[2017-01-14] MEDS: CHOLECALCIFEROL (VIT D3) 1,000 UNITS TABLET PO SCH (09:36)
[2017-01-14] MEDS: MULTIVITAMINS WITH MINERALS, THERAPEUTIC TABLET PO SCH (09:36)
[2017-01-14] MEDS: FLUoxetine HCL 20 MG CAPSULE PO SCH (09:36)
[2017-01-14] MEDS: NICOTINE 21 MG/24 HOUR PATCH TD SCH (09:43)
[2017-01-14] MEDS: LACTULOSE 20 GM/30 ML SOLUTION UDCUP PO SCH (09:48)
[2017-01-14 16:00] VITALS: BP 122/80
[2017-01-14] MEDS: QUEtiapine FUMARATE 300 MG ER TABLET PO SCH (20:44)
[2017-01-15 08:04] VITALS: BP 106/59
[2017-01-15] MEDS: LACTULOSE 20 GM/30 ML SOLUTION UDCUP PO SCH (09:00)
[2017-01-15] MEDS: CHOLECALCIFEROL (VIT D3) 1,000 UNITS TABLET PO SCH (09:47)
[2017-01-15] MEDS: OMEPRAZOLE 20 MG CAPSULE PO SCH (09:47)
[2017-01-15] MEDS: FLUoxetine HCL 20 MG CAPSULE PO SCH (09:47)
[2017-01-15] MEDS: MULTIVITAMINS WITH MINERALS, THERAPEUTIC TABLET PO SCH (09:47)
[2017-01-15] MEDS: LevETIRAcetam 500 MG TABLET PO SCH ×2 (09:48→17:57)
[2017-01-15] MEDS: NICOTINE 21 MG/24 HOUR PATCH TD SCH (09:57)
[2017-01-15 16:12] VITALS: BP 107/60
[2017-01-15] MEDS: LORazepam 2 MG TABLET PO PRN (17:57)
[2017-01-15] MEDS: QUEtiapine FUMARATE 300 MG ER TABLET PO SCH (21:42)
[2017-01-16 06:34] VITALS: BP 115/71
[2017-01-16 08:00] VITALS: BP 119/66
[2017-01-16] MEDS: LACTULOSE 20 GM/30 ML SOLUTION UDCUP PO SCH (09:00)
[2017-01-16] MEDS: FLUoxetine HCL 20 MG CAPSULE PO SCH (10:08)
[2017-01-16] MEDS: MULTIVITAMINS WITH MINERALS, THERAPEUTIC TABLET PO SCH (10:08)
[2017-01-16] MEDS: CHOLECALCIFEROL (VIT D3) 1,000 UNITS TABLET PO SCH (10:08)
[2017-01-16] MEDS: LevETIRAcetam 500 MG TABLET PO SCH ×2 (10:08→16:03)
[2017-01-16] MEDS: OMEPRAZOLE 20 MG CAPSULE PO SCH (10:08)
[2017-01-16] MEDS: NICOTINE 21 MG/24 HOUR PATCH TD SCH (10:13)
[2017-01-16 18:29] VITALS: BP 115/76
[2017-01-16] MEDS: QUEtiapine FUMARATE 300 MG ER TABLET PO SCH (21:04)
[2017-01-17 05:39] VITALS: BP 114/71
[2017-01-17] MEDS: LevETIRAcetam 500 MG TABLET PO SCH ×2 (08:53→15:52)
[2017-01-17] MEDS: LACTULOSE 20 GM/30 ML SOLUTION UDCUP PO SCH (08:53)
[2017-01-17] MEDS: OMEPRAZOLE 20 MG CAPSULE PO SCH (08:54)
[2017-01-17] MEDS: NICOTINE 21 MG/24 HOUR PATCH TD SCH (08:54)
[2017-01-17] MEDS: CHOLECALCIFEROL (VIT D3) 1,000 UNITS TABLET PO SCH (08:54)
[2017-01-17] MEDS: FLUoxetine HCL 20 MG CAPSULE PO SCH (08:54)
[2017-01-17] MEDS: MULTIVITAMINS WITH MINERALS, THERAPEUTIC TABLET PO SCH (08:54)
[2017-01-17 09:34] VITALS: BP 106/65
[2017-01-17 14:18] LABS: CHOL/HDL RATIO 2.9 (4.2-7.3)
[2017-01-17 20:03] VITALS: BP 118/73
[2017-01-17] MEDS: QUEtiapine FUMARATE 300 MG ER TABLET PO SCH (20:22)
[2017-01-18 08:04] VITALS: BP 96/64
[2017-01-18] MEDS: FLUoxetine HCL 20 MG CAPSULE PO SCH (09:26)
[2017-01-18] MEDS: CHOLECALCIFEROL (VIT D3) 1,000 UNITS TABLET PO SCH (09:26)
[2017-01-18] MEDS: MULTIVITAMINS WITH MINERALS, THERAPEUTIC TABLET PO SCH (09:28)
[2017-01-18] MEDS: LevETIRAcetam 500 MG TABLET PO SCH ×2 (09:28→16:08)
[2017-01-18] MEDS: OMEPRAZOLE 20 MG CAPSULE PO SCH (09:29)
[2017-01-18] MEDS: LACTULOSE 20 GM/30 ML SOLUTION UDCUP PO SCH (09:38)
[2017-01-18] MEDS: NICOTINE 21 MG/24 HOUR PATCH TD SCH (09:39)
[2017-01-18 16:30] VITALS: BP 110/69
[2017-01-18] MEDS: QUEtiapine FUMARATE 300 MG ER TABLET PO SCH (20:08)
[2017-01-19 06:17] VITALS: BP 115/75
[2017-01-19 08:01] VITALS: BP 107/58
[2017-01-19] MEDS: MULTIVITAMINS WITH MINERALS, THERAPEUTIC TABLET PO SCH (08:18)
[2017-01-19] MEDS: OMEPRAZOLE 20 MG CAPSULE PO SCH (08:18)
[2017-01-19] MEDS: FLUoxetine HCL 20 MG CAPSULE PO SCH (08:19)
[2017-01-19] MEDS: LevETIRAcetam 500 MG TABLET PO SCH ×2 (08:19→16:23)
[2017-01-19] MEDS: CHOLECALCIFEROL (VIT D3) 1,000 UNITS TABLET PO SCH (08:19)
[2017-01-19] MEDS: LACTULOSE 20 GM/30 ML SOLUTION UDCUP PO SCH (08:25)
[2017-01-19] MEDS: NICOTINE 21 MG/24 HOUR PATCH TD SCH (08:26)
[2017-01-19 16:19] VITALS: BP 112/76
[2017-01-19] MEDS: QUEtiapine FUMARATE 300 MG ER TABLET PO SCH (20:29)
[2017-01-20] MEDS: ZOLPIDEM TARTRATE 10 MG TABLET PO PRN (02:19)
[2017-01-20 06:26] VITALS: BP 116/76
[2017-01-20] MEDS: LACTULOSE 20 GM/30 ML SOLUTION UDCUP PO SCH (09:00)
[2017-01-20] MEDS: FLUoxetine HCL 20 MG CAPSULE PO SCH (09:49)
[2017-01-20] MEDS: MULTIVITAMINS WITH MINERALS, THERAPEUTIC TABLET PO SCH (09:50)
[2017-01-20] MEDS: OMEPRAZOLE 20 MG CAPSULE PO SCH (09:50)
[2017-01-20] MEDS: CHOLECALCIFEROL (VIT D3) 1,000 UNITS TABLET PO SCH (09:50)
[2017-01-20] MEDS: LevETIRAcetam 500 MG TABLET PO SCH ×2 (09:51→16:49)
[2017-01-20] MEDS: NICOTINE 21 MG/24 HOUR PATCH TD SCH (09:56)
[2017-01-20 16:10] VITALS: BP 109/75
[2017-01-20] MEDS: QUEtiapine FUMARATE 300 MG ER TABLET PO SCH (20:07)
[2017-01-21 08:00] VITALS: BP 127/59
[2017-01-21] MEDS: FLUoxetine HCL 20 MG CAPSULE PO SCH (09:51)
[2017-01-21] MEDS: OMEPRAZOLE 20 MG CAPSULE PO SCH (09:51)
[2017-01-21] MEDS: LACTULOSE 20 GM/30 ML SOLUTION UDCUP PO SCH (09:51)
[2017-01-21] MEDS: MULTIVITAMINS WITH MINERALS, THERAPEUTIC TABLET PO SCH (09:51)
[2017-01-21] MEDS: CHOLECALCIFEROL (VIT D3) 1,000 UNITS TABLET PO SCH (09:51)
[2017-01-21] MEDS: NICOTINE 21 MG/24 HOUR PATCH TD SCH (09:51)
[2017-01-21] MEDS: LevETIRAcetam 500 MG TABLET PO SCH ×2 (09:51→16:19)
[2017-01-21] MEDS: QUEtiapine FUMARATE 300 MG ER TABLET PO SCH (20:20)
[2017-01-21 22:56] VITALS: BP 116/64
[2017-01-21] MEDS: ZOLPIDEM TARTRATE 10 MG TABLET PO PRN (23:46)
[2017-01-22 03:39] VITALS: BP 133/80
[2017-01-22] MEDS: LACTULOSE 20 GM/30 ML SOLUTION UDCUP PO SCH (09:00)
[2017-01-22] MEDS: FLUoxetine HCL 20 MG CAPSULE PO SCH (10:06)
[2017-01-22] MEDS: LevETIRAcetam 500 MG TABLET PO SCH ×2 (10:07→16:16)
[2017-01-22] MEDS: OMEPRAZOLE 20 MG CAPSULE PO SCH (10:07)
[2017-01-22] MEDS: MULTIVITAMINS WITH MINERALS, THERAPEUTIC TABLET PO SCH (10:07)
[2017-01-22] MEDS: CHOLECALCIFEROL (VIT D3) 1,000 UNITS TABLET PO SCH (10:07)
[2017-01-22] MEDS: NICOTINE 21 MG/24 HOUR PATCH TD SCH (10:13)
[2017-01-22 18:29] VITALS: BP 128/81
[2017-01-22] MEDS: QUEtiapine FUMARATE 300 MG ER TABLET PO SCH (20:04)
[2017-01-23 01:50] VITALS: BP 89/57
[2017-01-23 02:00] VITALS: BP 84/57
[2017-01-23 02:10] VITALS: BP 88/55
[2017-01-23 06:19] VITALS: BP 101/69
[2017-01-23 08:00] VITALS: BP 128/82
[2017-01-23] MEDS: OMEPRAZOLE 20 MG CAPSULE PO SCH (08:39)
[2017-01-23] MEDS: CHOLECALCIFEROL (VIT D3) 1,000 UNITS TABLET PO SCH (08:39)
[2017-01-23] MEDS: MULTIVITAMINS WITH MINERALS, THERAPEUTIC TABLET PO SCH (08:39)
[2017-01-23] MEDS: LevETIRAcetam 500 MG TABLET PO SCH ×2 (08:39→15:46)
[2017-01-23] MEDS: FLUoxetine HCL 20 MG CAPSULE PO SCH (08:39)
[2017-01-23] MEDS: NICOTINE 21 MG/24 HOUR PATCH TD SCH (08:45)
[2017-01-23] MEDS: LACTULOSE 20 GM/30 ML SOLUTION UDCUP PO SCH (09:00)
[2017-01-23 16:09] VITALS: BP 107/65
[2017-01-23] MEDS: HALOPERIDOL 5 MG TABLET PO PRN (18:32)
[2017-01-23] MEDS: LORazepam 2 MG TABLET PO PRN (18:32)
[2017-01-23] MEDS: QUEtiapine FUMARATE 300 MG ER TABLET PO SCH (20:05)
[2017-01-24 00:36] VITALS: BP_SYST 66; BP_SYST 85; BP_SYST 90; BP_DIAS 46; BP_DIAS 57; BP_DIAS 64
[2017-01-24 06:30] VITALS: BP 100/67
[2017-01-24] MEDS: MULTIVITAMINS WITH MINERALS, THERAPEUTIC TABLET PO SCH (09:45)
[2017-01-24] MEDS: LevETIRAcetam 500 MG TABLET PO SCH ×2 (09:46→16:44)
[2017-01-24] MEDS: CHOLECALCIFEROL (VIT D3) 1,000 UNITS TABLET PO SCH (09:47)
[2017-01-24] MEDS: OMEPRAZOLE 20 MG CAPSULE PO SCH (09:48)
[2017-01-24] MEDS: FLUoxetine HCL 20 MG CAPSULE PO SCH (09:48)
[2017-01-24] MEDS: NICOTINE 21 MG/24 HOUR PATCH TD SCH (09:53)
[2017-01-24 10:11] VITALS: BP 96/64
[2017-01-24 13:36] VITALS: BP 103/63
[2017-01-24 16:10] VITALS: BP 100/61
[2017-01-24] MEDS: QUEtiapine FUMARATE 300 MG ER TABLET PO SCH (20:43)
[2017-01-25 06:35] VITALS: BP 100/59
[2017-01-25] MEDS: MULTIVITAMINS WITH MINERALS, THERAPEUTIC TABLET PO SCH (10:54)
[2017-01-25] MEDS: LevETIRAcetam 500 MG TABLET PO SCH ×2 (10:54→16:26)
[2017-01-25] MEDS: OMEPRAZOLE 20 MG CAPSULE PO SCH (10:54)
[2017-01-25] MEDS: FLUoxetine HCL 20 MG CAPSULE PO SCH (10:55)
[2017-01-25] MEDS: CHOLECALCIFEROL (VIT D3) 1,000 UNITS TABLET PO SCH (10:55)
[2017-01-25] MEDS: NICOTINE 21 MG/24 HOUR PATCH TD SCH (11:00)
[2017-01-25 13:28] VITALS: BP 112/65
[2017-01-25 16:32] VITALS: BP 112/64
[2017-01-25] MEDS: QUEtiapine FUMARATE 300 MG ER TABLET PO SCH (20:09)
[2017-01-26 00:06] VITALS: BP 126/83
[2017-01-26] MEDS: ZOLPIDEM TARTRATE 10 MG TABLET PO PRN ×2 (00:57→21:28)
[2017-01-26] MEDS: LevETIRAcetam 500 MG TABLET PO SCH ×2 (10:34→16:08)
[2017-01-26] MEDS: FLUoxetine HCL 20 MG CAPSULE PO SCH (10:34)
[2017-01-26] MEDS: CHOLECALCIFEROL (VIT D3) 1,000 UNITS TABLET PO SCH (10:34)
[2017-01-26] MEDS: OMEPRAZOLE 20 MG CAPSULE PO SCH (10:34)
[2017-01-26] MEDS: MULTIVITAMINS WITH MINERALS, THERAPEUTIC TABLET PO SCH (10:34)
[2017-01-26] MEDS: NICOTINE 21 MG/24 HOUR PATCH TD SCH (10:37)
[2017-01-26 11:56] VITALS: BP 108/57
[2017-01-26] MEDS: IBUPROFEN 600 MG TABLET PO PRN (16:08)
[2017-01-26 16:11] VITALS: BP 118/57
[2017-01-26] MEDS: QUEtiapine FUMARATE 300 MG ER TABLET PO SCH (20:28)
[2017-01-27 06:10] VITALS: BP 107/71
[2017-01-27 06:36] LABS: BASOPHILS # (AUTO) 0.01 K/uL (0.00-0.20); BASOPHILS % (AUTO) 0.3 % (0.0-2.0); EOSINOPHILS # (AUTO) 0.15 K/uL (0.00-0.70); EOSINOPHILS % (AUTO) 3.24 % (1.0-6.0); HEMATOCRIT 36.6 % (41-53); HEMOGLOBIN 12.1 g/dL (13.5-17.5); LYMPHOCYTES # (AUTO) 1.6 K/uL (1.0-4.8); LYMPHOCYTES % (AUTO) 34.3 % (22.0-44.0); MEAN CORPUSCULAR HEMOGLOBIN 29.2 pg (26.0-34.0); MEAN CORPUSCULAR HGB CONC 33.1 G/dL (31.0-37.0); MEAN CORPUSCULAR VOLUME 88 fL (80-100); MONOCYTES # (AUTO) 0.6 K/uL (0.1-1.0); MONOCYTES % (AUTO) 12.6 % (2.0-9.0); NEUTROPHILS # (AUTO) 2.3 K/uL (1.8-7.7); NEUTROPHILS % (AUTO) 49.6 % (40.0-70.0); PLATELET COUNT (AUTO) 208 K/uL (150-450); RED BLOOD CELL COUNT(AUTO) 4.15 MIL/uL (4.50-5.90); RED CELL DISTRIBUTION WIDTH 14.2 % (11.5-14.5); WHITE BLOOD COUNT (AUTO) 4.7 K/uL (4.5-11.0)
[2017-01-27 08:02] VITALS: BP 110/84
[2017-01-27 08:04] LABS: ALANINE AMINOTRANSFERASE 35 U/L (12-78); ALBUMIN 3.2 g/dL (3.4-5.0); ANION GAP 6 mmol/L (8-16); ASPARTATE AMINOTRANSFERASE 22 U/L (15-37); BILIRUBIN,TOTAL 0.2 mg/dL (0.1-1.0); CALCIUM, TOTAL 8.4 mg/dL (8.8-10.5); CARBON DIOXIDE 28 mmol/L (22-29); CHLORIDE 105 mmol/L (98-107); CHOL/HDL RATIO 3.4 (4.2-7.3); CREATININE 0.93 mg/dL (0.60-1.30); GLOMERULAR FILTR. RATE CALC > 60 mL/min (>60); PHOSPHORUS 3.8 mg/dL (2.5-4.9); POTASSIUM 4.1 mmol/L (3.5-5.1); SODIUM SERUM 139 mmol/L (136-145); THYROID STIMULATING HORMONE 2.31 uIU/mL (0.36-3.74); TOTAL PROTEIN, SERUM 6.9 g/dL (6.4-8.2); UREA NITROGEN, BLOOD 17 mg/dL (7-18)
[2017-01-27] MEDS: OMEPRAZOLE 20 MG CAPSULE PO SCH (10:40)
[2017-01-27] MEDS: MULTIVITAMINS WITH MINERALS, THERAPEUTIC TABLET PO SCH (10:40)
[2017-01-27] MEDS: FLUoxetine HCL 20 MG CAPSULE PO SCH (10:40)
[2017-01-27] MEDS: CHOLECALCIFEROL (VIT D3) 1,000 UNITS TABLET PO SCH (10:40)
[2017-01-27] MEDS: LevETIRAcetam 500 MG TABLET PO SCH ×2 (10:40→16:28)
[2017-01-27] MEDS: NICOTINE 21 MG/24 HOUR PATCH TD SCH (10:42)
[2017-01-27 16:07] VITALS: BP 126/70
[2017-01-27] MEDS: QUEtiapine FUMARATE 300 MG ER TABLET PO SCH (21:49)
[2017-01-28 08:00] VITALS: BP 109/60
[2017-01-28] MEDS: LACTULOSE 20 GM/30 ML SOLUTION UDCUP PO SCH ×3 (09:02→23:47)
[2017-01-28] MEDS: MULTIVITAMINS WITH MINERALS, THERAPEUTIC TABLET PO SCH (09:03)
[2017-01-28] MEDS: CHOLECALCIFEROL (VIT D3) 1,000 UNITS TABLET PO SCH (09:03)
[2017-01-28] MEDS: FLUoxetine HCL 20 MG CAPSULE PO SCH (09:03)
[2017-01-28] MEDS: LevETIRAcetam 500 MG TABLET PO SCH ×2 (09:03→16:41)
[2017-01-28] MEDS: OMEPRAZOLE 20 MG CAPSULE PO SCH (09:03)
[2017-01-28] MEDS: NICOTINE 21 MG/24 HOUR PATCH TD SCH (09:09)
[2017-01-28 16:13] VITALS: BP 128/79
[2017-01-28] MEDS: QUEtiapine FUMARATE 300 MG ER TABLET PO SCH (21:03)
[2017-01-29] MEDS: HALOPERIDOL 5 MG TABLET PO PRN ×2 (00:26→23:58)
[2017-01-29] MEDS: ZOLPIDEM TARTRATE 10 MG TABLET PO PRN ×2 (00:26→23:58)
[2017-01-29] MEDS: LACTULOSE 20 GM/30 ML SOLUTION UDCUP PO SCH ×3 (08:00→23:58)
[2017-01-29 09:00] VITALS: BP 99/51
[2017-01-29] MEDS: MULTIVITAMINS WITH MINERALS, THERAPEUTIC TABLET PO SCH (09:48)
[2017-01-29] MEDS: LevETIRAcetam 500 MG TABLET PO SCH ×2 (09:48→16:24)
[2017-01-29] MEDS: CHOLECALCIFEROL (VIT D3) 1,000 UNITS TABLET PO SCH (09:48)
[2017-01-29] MEDS: FLUoxetine HCL 20 MG CAPSULE PO SCH (09:49)
[2017-01-29] MEDS: OMEPRAZOLE 20 MG CAPSULE PO SCH (09:49)
[2017-01-29] MEDS: NICOTINE 21 MG/24 HOUR PATCH TD SCH (09:54)
[2017-01-29 18:15] VITALS: BP 127/84
[2017-01-29] MEDS: LORazepam 2 MG TABLET PO PRN (18:20)
[2017-01-29] MEDS: QUEtiapine FUMARATE 300 MG ER TABLET PO SCH (20:36)
[2017-01-30 05:00] VITALS: BP 106/58
[2017-01-30] MEDS: LACTULOSE 20 GM/30 ML SOLUTION UDCUP PO SCH ×2 (08:00→17:52)
[2017-01-30] MEDS: MULTIVITAMINS WITH MINERALS, THERAPEUTIC TABLET PO SCH (09:51)
[2017-01-30] MEDS: OMEPRAZOLE 20 MG CAPSULE PO SCH (09:51)
[2017-01-30] MEDS: CHOLECALCIFEROL (VIT D3) 1,000 UNITS TABLET PO SCH (09:51)
[2017-01-30] MEDS: FLUoxetine HCL 20 MG CAPSULE PO SCH (09:52)
[2017-01-30] MEDS: LevETIRAcetam 500 MG TABLET PO SCH ×2 (09:53→17:52)
[2017-01-30] MEDS: NICOTINE 21 MG/24 HOUR PATCH TD SCH (10:00)
[2017-01-30 13:29] VITALS: BP 121/64
[2017-01-30 16:10] VITALS: BP 112/65
[2017-01-30] MEDS: QUEtiapine FUMARATE 300 MG ER TABLET PO SCH (21:17)
[2017-01-31] MEDS: LACTULOSE 20 GM/30 ML SOLUTION UDCUP PO SCH ×3 (00:42→16:30)
[2017-01-31 08:00] VITALS: BP 84/65
[2017-01-31] MEDS: FLUoxetine HCL 20 MG CAPSULE PO SCH (08:22)
[2017-01-31] MEDS: LevETIRAcetam 500 MG TABLET PO SCH ×2 (08:22→16:31)
[2017-01-31] MEDS: CHOLECALCIFEROL (VIT D3) 1,000 UNITS TABLET PO SCH (08:22)
[2017-01-31] MEDS: MULTIVITAMINS WITH MINERALS, THERAPEUTIC TABLET PO SCH (08:22)
[2017-01-31] MEDS: NICOTINE 21 MG/24 HOUR PATCH TD SCH (08:22)
[2017-01-31] MEDS: OMEPRAZOLE 20 MG CAPSULE PO SCH (08:22)
[2017-01-31 16:10] VITALS: BP 105/61
[2017-01-31] MEDS: QUEtiapine FUMARATE 300 MG ER TABLET PO SCH (20:04)
[2017-01-31] MEDS: ZOLPIDEM TARTRATE 10 MG TABLET PO PRN (23:57)
[2017-02-01 03:08] VITALS: BP 91/54
[2017-02-01 08:00] VITALS: BP 112/70
[2017-02-01] MEDS: FLUoxetine HCL 20 MG CAPSULE PO SCH (09:17)
[2017-02-01] MEDS: NICOTINE 21 MG/24 HOUR PATCH TD SCH (09:17)
[2017-02-01] MEDS: LevETIRAcetam 500 MG TABLET PO SCH ×2 (09:17→16:09)
[2017-02-01] MEDS: LACTULOSE 20 GM/30 ML SOLUTION UDCUP PO SCH ×2 (09:17→16:08)
[2017-02-01] MEDS: CHOLECALCIFEROL (VIT D3) 1,000 UNITS TABLET PO SCH (09:17)
[2017-02-01] MEDS: OMEPRAZOLE 20 MG CAPSULE PO SCH (09:18)
[2017-02-01] MEDS: MULTIVITAMINS WITH MINERALS, THERAPEUTIC TABLET PO SCH (09:19)
[2017-02-01] MEDS: IBUPROFEN 600 MG TABLET PO PRN (12:55)
[2017-02-01 16:05] VITALS: BP 112/65
[2017-02-01] MEDS: QUEtiapine FUMARATE 300 MG ER TABLET PO SCH (20:01)
[2017-02-01] MEDS: ZOLPIDEM TARTRATE 10 MG TABLET PO PRN (21:52)
[2017-02-02 08:03] VITALS: BP 109/64
[2017-02-02] MEDS: LevETIRAcetam 500 MG TABLET PO SCH ×2 (10:12→16:31)
[2017-02-02] MEDS: MULTIVITAMINS WITH MINERALS, THERAPEUTIC TABLET PO SCH (10:12)
[2017-02-02] MEDS: OMEPRAZOLE 20 MG CAPSULE PO SCH (10:12)
[2017-02-02] MEDS: CHOLECALCIFEROL (VIT D3) 1,000 UNITS TABLET PO SCH (10:12)
[2017-02-02] MEDS: FLUoxetine HCL 20 MG CAPSULE PO SCH (10:12)
[2017-02-02] MEDS: NICOTINE 21 MG/24 HOUR PATCH TD SCH (10:13)
[2017-02-02] MEDS: LACTULOSE 20 GM/30 ML SOLUTION UDCUP PO SCH ×2 (10:17→16:30)
[2017-02-02] MEDS: LORazepam 2 MG TABLET PO PRN (13:01)
[2017-02-02 16:02] VITALS: BP 135/83
[2017-02-02] MEDS: QUEtiapine FUMARATE 300 MG ER TABLET PO SCH (20:33)
[2017-02-03] MEDS: ZOLPIDEM TARTRATE 10 MG TABLET PO PRN (00:09)
[2017-02-03 00:42] VITALS: BP 101/54
[2017-02-03 08:36] VITALS: BP 112/75
[2017-02-03] MEDS: CHOLECALCIFEROL (VIT D3) 1,000 UNITS TABLET PO SCH (09:33)
[2017-02-03] MEDS: OMEPRAZOLE 20 MG CAPSULE PO SCH (09:33)
[2017-02-03] MEDS: LevETIRAcetam 500 MG TABLET PO SCH ×2 (09:33→16:48)
[2017-02-03] MEDS: MULTIVITAMINS WITH MINERALS, THERAPEUTIC TABLET PO SCH (09:33)
[2017-02-03] MEDS: FLUoxetine HCL 20 MG CAPSULE PO SCH (09:33)
[2017-02-03] MEDS: NICOTINE 21 MG/24 HOUR PATCH TD SCH (09:34)
[2017-02-03] MEDS: LACTULOSE 20 GM/30 ML SOLUTION UDCUP PO SCH ×2 (09:35→16:48)
[2017-02-03 16:00] VITALS: BP 112/72
[2017-02-03] MEDS: QUEtiapine FUMARATE 300 MG ER TABLET PO SCH (21:12)
[2017-02-04] MEDS: LevETIRAcetam 500 MG TABLET PO SCH (10:37)
[2017-02-04] MEDS: OMEPRAZOLE 20 MG CAPSULE PO SCH (10:37)
[2017-02-04] MEDS: MULTIVITAMINS WITH MINERALS, THERAPEUTIC TABLET PO SCH (10:37)
[2017-02-04] MEDS: CHOLECALCIFEROL (VIT D3) 1,000 UNITS TABLET PO SCH (10:37)
[2017-02-04] MEDS: FLUoxetine HCL 20 MG CAPSULE PO SCH (10:37)
[2017-02-04] MEDS: LACTULOSE 20 GM/30 ML SOLUTION UDCUP PO SCH (10:37)
[2017-02-04] MEDS: NICOTINE 21 MG/24 HOUR PATCH TD SCH (10:40)
[2017-02-04] MEDS ORDERED: MV-M1TAB2 PO (11:08)
[2017-02-04 13:01] VITALS: BP 108/66
== END 2017-02-04 15:15 | DRG 750 ==
LOC: EMS 13:32 → EEVIPCON 13:32 → 3EI 20:54
PROVIDERS: ADMIT Psychiatry & Neurology Psychiatry; ATTEND Psychiatry & Neurology Psychiatry
PROC: GZHZZZZ Group Psychotherapy (ICD-10-PCS; principal; 2017-01-13)
DX: F25.1 Schizoaffective disorder, depressive type (principal); G93.40 Encephalopathy, unspecified; I95.9 Hypotension, unspecified; J44.9 Chronic obstructive pulmonary disease, unspecified; E55.9 Vitamin D deficiency, unspecified; R45.851 Suicidal ideations; N18.3 Chronic kidney disease, stage 3 (moderate); G40.909 Epilepsy, unspecified, not intractable, without status epilepticus; Z59.0 Homelessness; K21.9 Gastro-esophageal reflux disease without esophagitis; F20.0 Paranoid schizophrenia; F17.210 Nicotine dependence, cigarettes, uncomplicated; M19.90 Unspecified osteoarthritis, unspecified site; I12.9 Hypertensive chronic kidney disease with stage 1 through stage 4 chronic kidney disease, or unspecified chronic kidney disease; Z96.661 Presence of right artificial ankle joint; B18.2 Chronic viral hepatitis C; R26.9 Unspecified abnormalities of gait and mobility; Z53.29 Procedure and treatment not carried out because of patient's decision for other reasons; K59.00 Constipation, unspecified; F10.20 Alcohol dependence, uncomplicated; Z56.0 Unemployment, unspecified; Z79.899 Other long term (current) drug therapy; Z71.6 Tobacco abuse counseling; Z88.6 Allergy status to analgesic agent
CPT/HCPCS: 70450; 82306; 83735; 84100; 84443; 87081; 97161; 97165; 99285; G0480